=== PATIENT | female | born 1995 | race Hispanic/Latino ===

== ENCOUNTER → 2021-01-11 | Outpatient (CLI) | payer OTHER ==
--- NOTE | 2021-01-13 11:46 | REP ---
INDICATION: OF UNKNOWN LOCATION Twin gestation. COMPARISON: None. TECHNIQUE: Transvaginal 1st trimester obstetrical ultrasound with color Doppler evaluation. FINDINGS: Anteverted uterus measures 9.4 x 4.8 x 5.5 cm. A gestational sac with yolk sac is identified. Mean sac diameter of 10.3 mm corresponds to 5 weeks 0 days gestational age. No pole is currently identified. Bilateral maternal ovaries are normal in appearance and vascularity. No pelvic fluid or adnexal mass lesion identified. IMPRESSION: Findings suggest early as described above. Correlation with serial HCG levels recommended along with repeat ultrasound as necessary. Differential diagnosis would include blighted ovum. <Electronically signed by Mark Mares > 01/13/21 [id number]
== END ==
LOC: M RAD 12:36
PROVIDERS: ATTEND Obstetrics & Gynecology
DX: O36.80X0 Pregnancy with inconclusive fetal viability, not applicable or unspecified (principal)

== ENCOUNTER → 2021-01-25 | Outpatient (CLI) | payer OTHER ==
--- NOTE | 2021-01-25 16:10 | REP ---
INDICATION: F/U FOR VIABILITY COMPARISON: 01/11/2021 TECHNIQUE: Transabdominal and transvaginal 1st trimester obstetrical ultrasound with color Doppler evaluation. FINDINGS: Single live early intrauterine is appreciated. Gestational sac with yolk sac and pole identified. Bantam-rump length of 13 mm corresponds to 7 weeks 3 days gestational age with estimated date of delivery 09/10/2021. heart rate equals 150 beats per minute. Subchorionic hemorrhage measuring 18 x 13 x 9 mm noted. IMPRESSION: Single live early intrauterine at 7 weeks 3 days gestational age. Subchorionic hemorrhage. Complete anatomical assessment should be performed and 19-20 weeks. <Electronically signed by Mark Mares > 01/25/21 [id number]
== END ==
LOC: M RAD 15:07
PROVIDERS: ATTEND Obstetrics & Gynecology
DX: O36.80X0 Pregnancy with inconclusive fetal viability, not applicable or unspecified (principal); Z3A.01 Less than 8 weeks gestation of pregnancy

== ENCOUNTER 2021-03-02 12:33 | Emergency (ER) | payer OTHER ==
[~2021-03-02] VITALS: Ht 162.6 cm; Wt 63.6 kg
--- OUTSIDE RECORDS SUMMARY | 2021-03-02 12:38 | CCD | Summary of Care ---
Author Author [facility] Address Unknown Phone Unavailable Care Team Providers Care Adult Literacy Instructor Name Role Phone Pcp, No PCP Unavailable Reason for Visit * Reason Comments Shortness of Breath early with spotti ng and multi HX Encounter Details Care Team Description Date Type Department Tejas Davis MD [address] [place] [address] [phone] Leeanne Shahid MD [address] [place] [address] [phone] of unknown anatomic location ( Primary Dx); Diagnosis unknown; RLQ abdominal pain [facility]03[facility]20[facility] [address] [facility] 01/04/2021 [place] [address] Allergies Comments Active Allergy Reactions Severity Noted Date Nsaids 01/03/2021 Penicillins 01/03/2021 documented as of this encounter (statuses as of 01/04/2021) Medications End Date Status Medication Sig Dispensed Refills Start Date Active traZODone HCl 100 MG Oral Take 100 mg 0 Tablet (DESYREL) by mouth nightly documented as of this encounter (statuses as of 01/04/2021) Active Problems Comments Yes No additional problems on filedocumented as of this encounter (statuses as of 01/04/2021) Social History Date Tobacco Use Types Packs/Day Years Used Never Assessed Comments Yes Sex Assigned at Date Recorded Not on file Date Recorded COVID-19 Exposure Response 01/03/2021 7:12 PM EDT In the last month, have you been in contact with No / Unsure someone who was confirmed or suspected to have Coronavirus / COVID-19? documented as of this encounter Last Filed Vital Signs Reading Time Taken Comments Vital Sign 112/72 01/03/2021 11:45 PM EDT Blood Pressure 68 01/03/2021 11:45 PM EDT Pulse 36.7 C (98.1 F) 01/03/2021 11:45 PM EDT Temperature 16 01/03/2021 11:45 PM EDT Respiratory Rate 100% 01/03/2021 11:45 PM EDT Oxygen Saturation - - Inhaled Oxygen Concentration 63.5 kg (140 lb) 01/03/2021 7:23 PM EDT Weight 162.6 cm (5' 4") 01/03/2021 7:23 PM EDT Height 24.03 01/03/2021 7:23 PM EDT Body Mass Index documented in this encounter Discharge Instructions * Instructions* Joe Bender MD - 01/04/2021 Please follow up with our Gynecology team for a repeat beta hCG in 48 hours. * Attachments The following attachments cannot be sent through Care Everywhere.* ED Abdominal Pain, Possible Appendicitis (Female) (Portuguese) documented in this encounter ED Notes * Vesna Barron RN - 01/04/2021 1:45 AM EDT The patient left AMA. Discharge instructions were reviewed with the patient. The patient verbalized understanding of the instructions. All discharge questions w ere answered. Discharge vitals were not obtained because the patient was anxious to leave and did not want to wait. * Vesna Barron RN - 01/04/2021 1:20 AM EDT The patient is refusing Covid testing. Doctor Napoleon was notified. * Clifton Hernandez RN - 01/03/2021 7:19 PM EDT [facility], pt started with increas ed SOB and RLQ pain also started spotting 3-4 hrs prior. Pt also states neuro ca rdio genetic syncope. documented in this encounter Plan of Treatment Order Schedule Name Type Priority Associated Diag noses 1 Occurrences starting 01/04/2021 until 07/04/2021 Beta Hcg, Quant Lab Routine of u nknown anatomic location 1 Occurrences starting 01/04/2021 until 07/04/2021 Beta Hcg, Quant Lab Routine of u nknown anatomic location 1 Occurrences starting 01/04/2021 until 07/04/2021 Beta Hcg, Quant Lab Routine of u nknown anatomic location Once for 1 Occurrences starting 01/05/20 until 01/04/2021 COVID-19 PCR Microbiology Routine Once for 1 Occurrences starting 01/05/20 until 01/04/2021 Respiratory Pathogen Microbiology Routine Panel 1 Occurrences starting 01/04/2021 until 07/04/2021 Beta Hcg, Quant Lab Routine of u nknown anatomic location Health Maintenance Due Date Last Done Comments MMR Vaccines (1 of - 1997 Standard series) Varicella Vaccines (1 of 1997 2 - 2-dose childhood series) DTaP,Tdap,and Td Vaccines 2003 (1 - Tdap) HPV Vaccines (1 - 2-dose 2007 series) COVID-19 Vaccine (1) 2008 HIV Screening 2009 Chlamydia Screening 2012 Cervical Cancer Screening 2017 3 years Influenza Vaccine 01/15/2021 Pneumococcal Vaccine: 65+ 2061 Years (1 of 1 - PPSV23) HIB Vaccines Aged Out No longer eligible based on patient's age to complete this topic Hepatitis A Vaccines Aged Out No longer eligibl e based on patient's age to complete this topic Hepatitis B Vaccines Aged Out No longer eligibl e based on patient's age to complete this topic IPV Vaccines Aged Out No longer eligible based on patient's age to complete this topic Pneumococcal Vaccine: Aged Out No longer eligib le based on patient's age to Pediatrics (0 to 5 Years) complete this topic and At-Risk Patients (6 to 64 Years) documented as of this encounter Procedures Comments Procedure Name Priority Date/Time Associated Diag nosis US ABDOMEN LIMITED 80541 STAT 01/04/2021 Diagn osis unknown 1:04 AM EDT US OB TRANSVAGINAL [id number] Routine 01/03/2021 10:19 PM EDT POCT ISTAT BHCG Routine 01/03/2021 9:20 PM EDT PARTIAL THROMBOPLASTIN STAT 01/03/2021 TIME (PTT) 8:09 PM EDT BETA HCG, QUANT STAT 01/03/2021 8:09 PM EDT PROTIME INR STAT 01/03/2021 8:09 PM EDT CBC AND DIFFERENTIAL STAT 01/03/2021 8:09 PM EDT TYPE AND SCREEN Routine 01/03/2021 8:09 PM EDT BASIC METABOLIC PANEL STAT 01/03/2021 8:09 PM EDT documented in this encounter Results * US Abdomen Limited (01/04/2021 1:04 AM EDT) Specimen Narrative Performed At PROCEDURE INFORMATION: [facility] Exam: US Abdomen, Limited; Appendix Exam date and time: 01/04/2021 12:18 AM Age: 25 years old Clinical indication: with inc onclusive viability, not applicable or unspecified; Illness, uns pecified; Abdominal pain; Generalized; ; Additional info: Rlq, eval fo r appendicitis TECHNIQUE: Imaging protocol: US abdomen. Real time ultrasound with image documentation. Limited exam focused on the appendix. COMPARISON: US OB TRANSVAGINAL [id number] 01/03/2021 9:56 PM FINDINGS: Appendix: The appendix was not visualiz ed. Acute appendicitis cannot be excluded. Intraperitoneal space: There is a trace amount of free fluid in the right lower quadrant. IMPRESSION: 1. The appendix was not visualized. Acu te appendicitis cannot be excluded. 2. There is a trace amount of free flui d in the right lower quadrant. THIS DOCUMENT HAS BEEN ELECTRONICALLY S IGNED BY MADI RIDER MD Procedure Note Interface, Received Via [facility] - 01/04/2021 1:06 AM EDT PROCEDURE INFORMATION: Exam: US Abdomen, Limited; Appendix Exam date and time: 01/04/2021 12:18 AM Age: 25 years old Clinical indication: with inconclusive viability, not applicable or unspecified; Illness, unspecified; Abdominal pain; Generalized; ; Additional info: Rlq, eval for appendicitis TECHNIQUE: Imaging protocol: US abdomen. Real time ultrasound with image documentation. Limited exam focused on the appendix. COMPARISON: US OB TRANSVAGINAL [id number] 01/03/2021 9:56 PM FINDINGS: Appendix: The appendix was not visualized. Acute appendicitis cannot be excluded. Intraperitoneal space: There is a trace amount of free fluid in the right lower quadrant. IMPRESSION: 1. The appendix was not visualized. Acut e appendicitis cannot be excluded. 2. There is a trace amount of free fluid in the right lower quadrant. THIS DOCUMENT HAS BEEN ELECTRONICALLY SIGNED BY MADI RIDER MD Performing Organization Address City/State/ZIP Code P axel Number [facility] [address] [place] [address] * US OB Transvaginal (01/03/2021 10:19 PM EDT) Specimen Narrative Performed At PROCEDURE INFORMATION: [facility] Exam: US , Transvaginal Exam date and time: 01/03/2021 9:56 PM Age: 25 years old Clinical indication: complica piedad by abdominal or pelvic pain; Right lower quadrant; First trimester (<14 we eks 0 days); Gestational age or lmp: 3 wk 6 day from lmp; ; Additional info: Rlq abdominal pain, spotting, +home preg test TECHNIQUE: Imaging protocol: Real-time transvagina l obstetrical ultrasound of the maternal pelvis with image documentation. Transv aginal imaging was used for better evaluation of the fetus, adnexa, and/or cervix. COMPARISON: No relevant prior studies available. FINDINGS: Gestation: There is no evidence of a ge stational sac. MATERNAL: Uterus: The uterus measures 9.0 x 4.3 x 5.6 cm. Right adnexa: The right ovary measures 2.9 x 2.1 x 2.1 cm. There is a slightly low echogenicity lesion within the righ t ovary measuring 2.2 x 1.2 x 1.4 cm. Left adnexa: The left ovary measures 2. 5 x 1.6 x 1.7 cm. IMPRESSION: 1. No evidence of a gestational sac. Th is could represent miscarriage. 2. The right ovary measures 2.9 x 2.1 x 2.1 cm. There is a slightly low echogenicity lesion within the right ov smith measuring 2.2 x 1.2 x 1.4 cm. This could represent corpus luteum. No pole was visualized. Ectopic cannot be fully excluded and follow-up with serial HCG levels and ultrasound is recommended for further e valuation. THIS DOCUMENT HAS BEEN ELECTRONICALLY S IGNED BY MADI RIDER MD Procedure Note Interface, Received Via [facility] - 01/03/2021 11:08 PM EDT PROCEDURE INFORMATION: Exam: US , Transvaginal Exam date and time: 01/03/2021 9:56 PM Age: 25 years old Clinical indication: complicated by abdominal or pelvic pain; Right lower quadrant; First trimester (<14 weeks 0 days); Gestational age or lmp: 3 wk 6 day from lmp; ; Additional info: Rlq abdominal pain, spotting, +home preg test TECHNIQUE: Imaging protocol: Real-time transvaginal obstetrical ultrasound of the maternal pelvis with image documentation. Transvaginal imaging was used for better evaluation of the fetus, adnexa, and/or cervix. COMPARISON: No relevant prior studies available. FINDINGS: Gestation: There is no evidence of a gestational sac. MATERNAL: Uterus: The uterus measures 9.0 x 4.3 x 5.6 cm. Right adnexa: The right ovary measures 2.9 x 2.1 x 2.1 cm. There is a slightly low echogenicity lesion within the right ovary measuring 2.2 x 1.2 x 1.4 cm. Left adnexa: The left ovary measures 2.5 x 1.6 x 1.7 cm. IMPRESSION: 1. No evidence of a gestational sac. Thi s could represent miscarriage. 2. The right ovary measures 2.9 x 2.1 x 2.1 cm. There is a slightly low echogenicity lesion within the right ovary measuring 2.2 x 1.2 x 1.4 cm. This could represent corpus luteum. No pole was visualized. Ectopic cannot be fully excluded and follow-up with serial HCG levels and ultrasound is recommended for further evaluation. THIS DOCUMENT HAS BEEN ELECTRONICALLY SIGNED BY MADI RIDER MD Performing Organization Address City/[facility]/ZIP Code P axel Number [facility] [address] [place] [address] * POCT i-STAT BHCG (01/03/2021 9:20 PM EDT) i-STAT [facility] 381 (H) <5 [IU]/L [facility] Comment: Hospital POC (NOTE) Levels between 5 and 25 [IU]/L may indicate early and should be repeated after 48 hours. Specimen Whole Blood Performing Organization Address [facility]/ZIP [facility] P axel Number POINT OF CARE TEST [address] [place] [address] [facility] POC [address] [place] [address] * Partial Thromboplastin Time (PTT) (01/03/2021 8:09 PM EDT) PTT 27.6 24.0 - 33.0 s [facility] Clin Pathology Specimen Plasma Performing Organization Address [facility] P axel Number [facility] [address] [place], [place] [address] PATHOLOGY [facility] [address] [place], [place] [address] Clin Pathology * Protime-INR (01/03/2021 8:09 PM EDT) PT Patient 13.1 11.6 - 14.0 s [facility] Clin Pathology Int'l 1.03Comment: Routine intensity [facility] pstate Normalized oral anticoagulation INR is Med [facility] Clin Ratio typically 2.0-3.0. Target INR Patholo gy must be clinically individualized. Specimen Plasma Performing Organization Address [facility]/ZIP [facility] P axel Number [facility] [address] [place], [place] [address] PATHOLOGY [facility] [address] [place], [place] [address] Clin Pathology * CBC and Differential (01/03/2021 8:09 PM EDT) White Blood 10.6 (H) 4.00 - 10.00 10*3/uL [facility] Ups ate Cell [facility] Clin Pathology Red Blood Cell 4.32 4.10 - 5.30 10*6/uL [facility] Clin Pathology Hemoglobin 13.6 11.5 - 15.5 g/dL [facility] Clin Pathology Hematocrit 39.6 36.0 - 45.0 % [facility] Clin Pathology Mean Cell 91.8 80.0 - 96.0 fL [facility] Volume [facility] Clin Pathology Mean Cell 31.6 27.0 - 33.0 pg [facility] Hemoglobin [facility] Clin Pathology Mean Cell Hgb 34.4 32 - 36 g/dL [facility] Clin Pathology Red Cell Dist 13.2 11.5 - 14.5 % [facility] Width [facility] Clin Pathology Platelet Count 352 150 - 400 10*3/uL [facility] Clin Pathology Differential Automated Diff [facility] Clin Pathology Neutrophil 57 % [facility] Clin Pathology Lymphocyte 34 % [facility] Clin Pathology Monocyte 7 % [facility] Clin Pathology Eosinophil 1 % [facility] Clin Pathology Basophil 1 % [facility] Clin Pathology Abs Neutrophil 6.11 1.80 - 7.00 10*3/uL [facility] Clin Pathology Abs Lymphocyte 3.60 1.20 - 4.00 10*3/uL [facility] Clin Pathology Abs Monocyte 0.69 0.00 - 0.80 10*3/uL [facility] Clin Pathology Abs Eosinophil 0.10 0.00 - 0.50 10*3/uL [facility] Clin Pathology Abs Basophil 0.06 0.00 - 0.20 10*3/uL [facility] Clin Pathology Nucleated Red 0 0 - 0 /100{WBCs} [facility] Blood Cells [facility] Clin Pathology Specimen EDTA Whole Blood Performing Organization Address City/State/ZIP Code P axel Number [facility] [address] [place], [place] [address] PATHOLOGY [facility] [address] [place], [place] [address] Clin Pathology * Basic Metabolic Panel (01/03/2021 8:09 PM EDT) Bicarbonate 18 (L) 22 - 29 mmol/L [facility] Clin Pathology Chloride 101 98 - 107 mmol/L [facility] Clin Pathology Creatinine 0.73 0.50 - 0.90 mg/dL [facility] Clin Pathology Glucose 100 70 - 140 mg/dL [facility] Clin Pathology Potassium 3.5 3.4 - 5.1 mmol/L [facility] Clin Pathology Sodium 133 (L) 136 - 145 mmol/L [facility] Clin Pathology Blood Urea 9 6 - 20 mg/dL [facility] Nitrogen [facility] Clin Pathology Anion Gap 14 8 - 15 mmol/L [facility] Clin Pathology Osmolality, Earl 274 (L) 275.0 - 300.0 [facility] mosm/kg [facility] Clin Pathology BUN/Cre Ratio 12 [facility] Clin Pathology Calcium 9.1 8.6 - 10.0 mg/dL [facility] Clin Pathology GFR Non >90 >60 mL/min/1.73m2 [facility] 2008 Med [facility] Clin CDK-EPI Pathology GFR >90 >60 mL/min/1.73m2 [facility] 2008 [facility] CKD-EPI Pathology Specimen Plasma Performing Organization Address [facility] P axel Number [address] [address] Clin Pathology * Beta Hcg, Quant (01/03/2021 8:09 PM EDT) Beta HCG, Quant 460 (H) <5 m[IU]/mL [facility] Clin Pathology Specimen Plasma Performing Organization Address City/[facility] P axel Number [address] [address] Clin Pathology * Type and Screen (01/03/2021 8:09 PM EDT) ABO/RH(D) O POS [facility] Clin Pathology Gel Antibody NEG [facility] Clin Pathology Site Performed at [facility] Clin Pathology Specimen EDTA Whole Blood Performing Organization Address [facility] P axel Number [facility] [address] [place], [place] [address], [place] [address] Clin Pathology documented in this encounter Visit Diagnoses Diagnosis of unknown anatomic location - Primary state, incidental Diagnosis unknown Other unknown and unspecified cause of morbidity or mortality RLQ abdominal pain Abdominal pain, right lower quadrant documented in this encounter Administered Medications Action Date Dose Rate Site Medication Order MAR Action 01/03/2021 11:06 PM EDT 2 mg morphine sulfate (PF) injection 2 mg Given by IV 2 mg, Intravenous, Once, On Mon01/03/21 push at 2300, For 1 dose 01/03/2021 9:16 PM EDT 4 mg morphine sulfate (PF) injection 4 mg Given by IV 4 mg, Intravenous, Once, On Mon01/03/21 push at 2100, For 1 dose 01/04/2021 1:07 AM EDT 4 mg morphine sulfate (PF) injection 4 mg Given by IV 4 mg, Intravenous, Once, On Mon01/04/21 push at 0000, For 1 dose 01/03/2021 9:16 PM EDT 1,000 mLs 999 mL/hr sodium chloride 0.9 % bolus 1,000 mL New Bag 1,000 mL, Intravenous, Once, On Mon01/03/21 at 2100, For 1 dose 01/03/2021 11:05 PM EDT 1,000 mLs 999 mL/hr sodium chloride 0.9 % bolus 1,000 mL New Bag 1,000 mL, Intravenous, Once, On Mon01/03/21 at 2300, For 1 dose documented in this encounter Active and Recently Administered Medications Times are shown in EDT. 01/03/2021 01/04/2021 Medication Order 01/02/20212305 (Given by IV push - Provider: yTrel Barron RN) morphine sulfate (PF) injection 2 mg (COMPLETED) 2 mg, Intravenous, Once, On Mon01/03/21 at 2300, For 1 dose 2115 (Given by IV push - Provider: Tyrel Barron RN) morphine sulfate (PF) injection 4 mg (COMPLETED) 4 mg, Intravenous, Once, On Mon01/03/21 at 2100, For 1 dose 0107 (Given by IV push - Provider: Tyrel Barron RN) morphine sulfate (PF) injection 4 mg (COMPLETED) 4 mg, Intravenous, Once, On Mon01/04/21 at 0000, For 1 dose 6 (New Bag - Provider: Vesna lo RN)2253 (Stopped - All Meds - Provider: Kary Patel LPN) sodium chloride 0.9 % bolus 1,000 mL (COMPLETED) 1,000 mL, Intravenous, Once, On 01/03/21 at 2100, For 1 dose 2305 (New Bag - Provider: Vesna lo RN) 0019 (Stopped - All Meds - Provider: Yumiko Barron RN) sodium chloride 0.9 % bolus 1,000 mL (COMPLETED) 1,000 mL, Intravenous, Once, On 01/03/21 at 2300, For 1 dose documented in this encounter Additional Health Concerns Last Indicated Resolved Time Infection Onset Date 01/04/2021 COVID-19 Rule-Out 01/04/2021 01/04/2021 Respiratory Rule-Out 01/04/2021 documented as of this encounter
--- OUTSIDE RECORDS SUMMARY | 2021-03-02 12:39 | CCD ---
Author Author [facility] Organization [facility] Address Unknown Phone Unavailable Care Team Providers Care Plant Operations Manager Name Role Phone Edwin PRATT MD Unavailable Unavailable Edwin PRATT MD Unavailable Unavailable Edwin PRATT MD Unavailable Unavailable Edwin PRATT MD Unavailable Unavailable Edwin PRATT MD Unavailable Unavailable Edwin PRATT MD Unavailable Unavailable Edwin PRATT MD Unavailable Unavailable Edwin PRATT MD Unavailable Unavailable Donald ANGULO MD Unavailable Unavailable Donald ANGULO MD Unavailable Unavailable Donald ANGULO MD Unavailable Unavailable Donald ANGULO MD Unavailable Unavailable Donald ANGULO MD Unavailable Unavailable Donald ANGULO MD Unavailable Unavailable Donald ANGULO MD Unavailable Unavailable Donald ANGULO MD Unavailable Unavailable Donald ANGULO MD Unavailable Unavailable Donald ANGULO MD Unavailable Unavailable Donald ANGULO MD Unavailable Unavailable Donald ANGULO MD Unavailable Unavailable Donald ANGULO MD Unavailable Unavailable Carangelo, Guillermo PA Unavailable Unavailable Carangelo, Guillermo PA Unavailable Unavailable Carangelo, Guillermo PA Unavailable Unavailable Carangelo, Guillermo PA Unavailable Unavailable Carangelo, Guillermo PA Unavailable Unavailable Carangelo, Guillermo PA Unavailable Unavailable Carangelo, Guillermo PA Unavailable Unavailable Carangelo, Guillermo PA Unavailable Unavailable Carangelo, Guillermo PA Unavailable Unavailable Carangelo, Guillermo PA Unavailable Unavailable Carangelo, Guillermo PA Unavailable Unavailable Carangelo, Guillermo PA Unavailable Unavailable Carangelo, Guillermo PA Unavailable Unavailable Carangelo, Guillermo PA Unavailable Unavailable Carangelo, Guillermo PA Unavailable Unavailable Carangelo, Guillermo PA Unavailable Unavailable Carangelo, Guillermo PA Unavailable Unavailable Carangelo, Guillermo PA Unavailable Unavailable Carangelo, Guillermo PA Unavailable Unavailable Carangelo, Guillermo PA Unavailable Unavailable Carangelo, Guillermo PA Unavailable Unavailable Carangelo, Guillermo PA Unavailable Unavailable Carangelo, Guillermo PA Unavailable Unavailable Carangelo, Guillermo PA Unavailable Unavailable Carangelo, Guillermo PA Unavailable Unavailable Carangelo, Guillermo PA Unavailable Unavailable Carangelo, Guillermo PA Unavailable Unavailable Carangelo, Guillermo PA Unavailable Unavailable Carangelo, Guillermo PA Unavailable Unavailable Carangelo, Guillermo PA Unavailable Unavailable Meng, L Janell BUZZSAW OPERATOR Unavailable Unavailable Meng, L Janell BUZZSAW OPERATOR Unavailable Unavailable Meng, L Janell BUZZSAW OPERATOR Unavailable Unavailable Meng, L Janell BUZZSAW OPERATOR Unavailable Unavailable Meng, L Janell BUZZSAW OPERATOR Unavailable Unavailable Meng, L Janell BUZZSAW OPERATOR Unavailable Unavailable Meng, L Janell BUZZSAW OPERATOR Unavailable Unavailable Meng, L Janell BUZZSAW OPERATOR Unavailable Unavailable Meng, L Janell BUZZSAW OPERATOR Unavailable Unavailable Meng, L Janell BUZZSAW OPERATOR Unavailable Unavailable Meng, L Janell BUZZSAW OPERATOR Unavailable Unavailable Meng, L Janell BUZZSAW OPERATOR Unavailable Unavailable Meng, L Janell BUZZSAW OPERATOR Unavailable Unavailable Meng, L Janell BUZZSAW OPERATOR Unavailable Unavailable Meng, L Janell BUZZSAW OPERATOR Unavailable Unavailable Meng, L Janell BUZZSAW OPERATOR Unavailable Unavailable Meng, L Janell BUZZSAW OPERATOR Unavailable Unavailable Meng, L Janell BUZZSAW OPERATOR Unavailable Unavailable Meng, L Janell BUZZSAW OPERATOR Unavailable Unavailable Meng, L Janell BUZZSAW OPERATOR Unavailable Unavailable Meng, L Janell BUZZSAW OPERATOR Unavailable Unavailable Meng, L Janell BUZZSAW OPERATOR Unavailable Unavailable Meng, L Janell BUZZSAW OPERATOR Unavailable Unavailable Meng, L Janell BUZZSAW OPERATOR Unavailable Unavailable Meng, L Janell BUZZSAW OPERATOR Unavailable Unavailable Meng, L Janell BUZZSAW OPERATOR Unavailable Unavailable Meng, L Janell BUZZSAW OPERATOR Unavailable Unavailable Meng, L Janell BUZZSAW OPERATOR Unavailable Unavailable Meng, L Janell BUZZSAW OPERATOR Unavailable Unavailable Meng, L Janell BUZZSAW OPERATOR Unavailable Unavailable Meng, L Janell BUZZSAW OPERATOR Unavailable Unavailable Meng, L Janell BUZZSAW OPERATOR Unavailable Unavailable Meng, L Janell BUZZSAW OPERATOR Unavailable Unavailable Meng, L Janell BUZZSAW OPERATOR Unavailable Unavailable Meng, L Janell BUZZSAW OPERATOR Unavailable Unavailable Meng, L Janell BUZZSAW OPERATOR Unavailable Unavailable Meng, L Janell BUZZSAW OPERATOR Unavailable Unavailable Meng, L Janell BUZZSAW OPERATOR Unavailable Unavailable Meng, L Janell BUZZSAW OPERATOR Unavailable Unavailable Meng, L Janell BUZZSAW OPERATOR Unavailable Unavailable Meng, L Janell BUZZSAW OPERATOR Unavailable Unavailable Meng, L Janell BUZZSAW OPERATOR Unavailable Unavailable Meng, L Janell BUZZSAW OPERATOR Unavailable Unavailable Meng, L Janell BUZZSAW OPERATOR Unavailable Unavailable Meng, L Janell BUZZSAW OPERATOR Unavailable Unavailable CHANLIECCO, C VIRGINIA MD Unavailable Unavailable CHANLIECCO, C VIRGINIA MD Unavailable Unavailable CHANLIECCO, C VIRGINIA MD Unavailable Unavailable CHANLIECCO, C VIRGINIA MD Unavailable Unavailable CHANLIECCO, C VIRGINIA MD Unavailable Unavailable CHANLIECCO, C VIRGINIA MD Unavailable Unavailable CHANLIECCO, C VIRGINIA MD Unavailable Unavailable CHANLIECCO, C VIRGINIA MD Unavailable Unavailable CHANLIECCO, C VIRGINIA MD Unavailable Unavailable CHANLIECCO, C VIRGINIA MD Unavailable Unavailable CHANLIECCO, C VIRGINIA MD Unavailable Unavailable Re-disclosure Warning The records that you are about to access may contain information from federally-assisted alcohol or drug abuse programs. If such information is present, then the following federally mandated warning applies: This information has been disclosed to you from records protected by federal confidentiality rules (42 CFR part 2). The federal rules prohibit you from making any further disclosure of this information unless further disclosure is expressly permitted by the written consent of the person to whom it pertains or as otherwise permitted by 42 CFR part 2. A general authorization for the release of medical or other information is NOT sufficient for this purpose. The Federal rules restrict any use of the information to criminally investigate or prosecute any alcohol or drug abuse patient.The records that you are about to access may contain highly sensitive health information, the redisclosure of which is protected by Article 27-F of the [facility] Public Health law. If you continue you may have access to information: Regarding HIV / AIDS; Provided by facilities licensed or operated by the [facility] Office of Mental Health; or Provided by the [facility] Office for People With Developmental Disabilities. If such information is present, then the following [facility] mandated warning applies: This information has been disclosed to you from confidential records which are protected by state law. State law prohibits you from making any further disclosure of this information without the specific written consent of the person to whom it pertains, or as otherwise permitted by law. Any unauthorized further disclosure in violation of state law may result in a fine or long term sentence or both. A general authorization for the release of medical or other information is NOT sufficient authorization for further disc losure. Allergies and Adverse Reactions Type Description Substance Reaction Status Data Source(s ) Propensity to adverse reactions PENICILLINS [facility] Propensity to adverse reactions NSAIDS [facility] Encounters Encounter Providers Location Date Indications Data Source(s ) Outpatient Attender: Guillermo Mcconnell Office 01/08/2021 11:00:00 AM EDT [facility] ([facility]) Emergency Attender: VIRGINIA JOHN MDConsultant: Mine Meng BUZZSAW OPERATOR 01/05/2021 04:54:00 PM EDT - 01/05/2021 08:32:00 PM EDT [facility] Patient discharged. Emergency Attender: FERNANDO PRATT MDAttender: BAKARI MARQUEZ MD 07A-ERMADULT 01/03/2021 12:00:00 AM EDT - 01/04/2021 01:50:00 AM EDT /abdominal pain/shortness of breath [facility] /abdominal pain/shortness of kallie ath Patient discharged. Medications Medication Brand Name Start Date Product Form Dose Route Admi nistrative Instructions Pharmacy Instructions Status Indications Reaction Description Data Source(s) morphine sulfate (PF) injection 4 mg 8237-0074-75 01/04/2021 12:00: 00 AM EDT 4 mg Intravenous completed 4 mg, In travenous, Once, On 01/04/21 at 0000, For 1 dose [facility] Medication administered onsite sodium chloride 0.9 % bolus 1,000 mL 01/03/2021 11:00: 00 PM EDT 1000 mL Intravenous completed 1,000 mL , Intravenous, Once, On 01/03/21 at 2300, For 1 dose [facility] Medication administered onsite morphine sulfate (PF) injection 2 mg [id number] 01/03/2021 11:00: 00 PM EDT 2 mg Intravenous completed 2 mg, In travenous, Once, On 01/03/21 at 2300, For 1 dose [facility] Medication administered onsite morphine sulfate (PF) injection 4 mg [id number] 01/03/2021 09:00: 00 PM EDT 4 mg Intravenous completed 4 mg, In travenous, Once, On Mon01/03/21 at 2100, For 1 dose [facility] Medication administered onsite sodium chloride 0.9 % bolus 1,000 mL [id number] 01/03/2021 09:00: 00 PM EDT 1000 mL Intravenous completed 1,000 mL , Intravenous, Once, On 01/03/21 at 2100, For 1 dose [facility] Medication administered onsite Insurance Providers Payer name Policy type / Coverage type Policy ID Covered democrat ID Covered democrat's relationship to camacho Policy Camacho Plan Information [id number] Self [id number] [facility] [id number] [facility] [id number] [facility] - O/P [id number] 01 [id number] [facility] [id number] Problems, Conditions, and Diagnoses Code Display Name Description Problem Type Effective Dates Data Source(s) Z3A01 Less than 8 weeks gestation of Less than 8 weeks gestation of Diagnosis 01/05/2021 04:54:00 PM EDT [facility] [id number] Unspecified infection of urinary tract i n , first trimester Unspecified infection of urinary tract in , first trimester Diagnosis 01/05/2021 04:54:00 PM EDT [facility] O2691 related conditions, unspecifie d, first trimester related conditions, unspecified, first trimester Diagnosis 01/05 04:54:00 PM EDT [facility] /abdominal pain/shortness of kallie ath /abdominal pain/shortness of breath Diagnosis 01/03/2021 07:12:[address] [facility] Surgeries/Procedures Procedure Description Date Indications Data Source(s) OFFICE OUTPATIENT NEW 20 MINUTES 01/08/2021 12:00:00 A M EDT [facility] ([facility]) ULTRASOUND ABDOMINAL REAL TIME W/IMAGE LIMITED <td>US ABDOMEN LIMITED [id number]</td><td>STAT</td><td>01/04/2021 1:04 AM EDT</td><td> Diagnosis unknown</td><td> </td> 01/04/2021 01:04:32 AM EDT Diagnosis unknown [facility] Diagnosis unknown US PREG UTERUS REAL TIME W/IMAGE DCMTN TRANSVAG <td>US OB TRANSVAGINAL 17108</td><td>Routine</td><td>01/03/2021 10:19 PM EDT</td><td></td><td> </td> 01/03/2021 10:19:[address] [facility] GONADOTROPIN CHORIONIC QUANTITATIVE <td>POCT ISTAT BHCG</td><td>Routine</td><td>01/03/2021 9:20 PM EDT</td><td></td><td> </td> 01/03/2021 09:20:[address] [facility] THROMBOPLASTIN TIME PARTIAL PLASMA/WHOLE BLOOD <td>PAR TIAL THROMBOPLASTIN TIME (PTT)</td><td>STAT</td><td>01/03/2021 8:09 PM EDT</td><td></td><td> </td> 01/03/2021 08:09:[address] [facility] GONADOTROPIN CHORIONIC QUANTITATIVE <td>BETA HCG, QUANT</td><td>STAT</td><td>01/03/2021 8:09 PM EDT</td><td></td><td> </td> 01/03/2021 08:09:[address] [facility] PROTHROMBIN TIME <td>PROTIME INR</td><td>STAT </td><td>01/03/2021 8:09 PM EDT</td><td></td><td> </td> 01/03/2021 08:09:[address] [facility] BLOOD COUNT COMPLETE AUTO&AUTO DIFRNTL WBC COUNT <td>C BC AND DIFFERENTIAL</td><td>STAT</td><td>01/03/2021 8:09 PM EDT</td><td></td><td> </td> 01/03/2021 08:09:[address] [facility] BLOOD TYPING ABO <td>TYPE AND SCREEN</td><td> Routine</td><td>01/03/2021 8:09 PM EDT</td><td></td><td> </td> 01/03/2021 08:09:00 PM EDT [facility] BASIC METABOLIC PANEL CALCIUM TOTAL <td>BASIC METABOLI C PANEL</td><td>STAT</td><td>01/03/2021 8:09 PM EDT</td><td></td><td> </td> 01/03/2021 08:09:00 PM EDT [facility] Results ID Date Data Source [id number] 01/13/2021 04:14:[address] [facility] Name Value Range Interpretation Code Description Data Joan rce(s) Supporting Document(s) ED Provider Note [facility] [id number] lbm [file] [id number]== ID Date Data Source [id number] 01/05/2021 04:54:00 PM EDT [facility] 1 OrderSheet [facility] Emergency Department [address] [place] [address] Phone #: ext- [phone] 01/05/2021 16:52 Patient: KURT TANNER Sex: F : 1995 Age: 25yWEIGHT:63.5 kg (S) HEIGHT:64 inches (S) BMI:24.0ALLERGIES: NSAIDs, Peni cillinsCHIEF COMPLAINT: pelvic painDIAGNOSIS: Urinary tract infectious disease, Patient currently , Abdominal painLAB ORDERSOrder Description Priority Entered Acknowledged InitialedUA Reflex to UA 17:55 01/05/2021 18:08 Donald,Culture Virginia John R.N. ;HCG Serum Quant STAT 17:55 01/05/2021 18:08 Alvaro Bennett Victoria Jennifer R.N. ;CBC w Diff STAT 17:55 01/05/2021 18:08 Alvaro Bennett Victoria Jennifer R.N. ;CMP STAT 17:55 01/05/2021 18:08 Alvaro Bennett Victoria Jennifer R.N. ;DIAGNOSTIC STUDY ORDERSOrder Description Priority Entered Acknowledged InitialedUS OB 1ST TRI W STAT 17:55 01/05/2021 Ack'd: 18:08 18:42 Donald,TV IF NEEDED Virginia John Jennifer Jennifer R.N.(Oxygen?(No)) ; R.N.(IV?(No)) Reason for Study: right lower abdomiena pain 4 weeks MEDICATION/IV/DRIP/FLUID ORDERSOrder Description Priority Entered Acknowledged InitialedTylenol PO 650 mg 17:56 01/05 18:10 Donald,(NOW) Virginia John R.N. ;Pyridium PO 200 19:03 01/05/2021 Cancelled: Patient Refusal 19:14mg (NOW) Virginia John Jennifer R.N. ;Macrobid PO 100 19:03 01/05/2021 19:14 mg Alvaro Bennett Victoria Jennifer R.N. 2 OrderSheet [facility] Emergency Department [address] [place] [address] Phone #: ext- [phone] 01/05/2021 16:52 Patient: KURT TANNER Sex: F : 1995 Age: 25y ;Percocet PO 1 tab 19:05 01/05/2021 19:14 Donald,(HIGH ALERT Virginia John R.N.MEDICATION) ;GENERAL ORDERSOrder Description Priority Entered Acknowledged Initialed[Electronically signed by Tiara Silva (20:32 01/05/2021)][Electronically signed by Virginia John (21:42 01/05/2021)][Electronically locked by Tiara Silva (20:32 01/05/2021)] Name Value Range Interpretation Code Description Data Joan rce(s) Supporting Document(s) ID Date Data Source [id number] 01/05/2021 04:54:00 PM EDT [facility] 1 Medication Reconciliation Report [facility] Emergency Department [address] [place] [address] Phone #: ext- [phone] 01/05/2021 16:52 Patient: KURT TANNER Sex: F : 1995 Age: 25yWeight: 63.5 kgHeight/Length: 64 in.BMI: 24.0ALLERGIES: NSAIDs, PenicillinsThe patient's Home Medications are listed below:NONE.The source(s) of the original Home Medication information:Not obtained.The following Medications were given to the patient in the Emergency Department:Tylenol [PO] PO 650 mg, administered: 18:10 01/05/2021Macrobid [PO] PO 100 mg, administered: 19:14 01/05/2021ercocet [PO] PO 1 tab, administered: 19:14 01/05/2021The following Medications were prescribed to the patient:Pyridium 200 mg tablet Take 1 tablet three times a day for 2 days -- Dispense 6 tablet. Refills: 0.Substitution permitted.Pharmacy - [facility] [id number] ; [place] [address]. .Macrobid 100 mg capsule Take 1 capsule twice a day for 7 days -- Dispense 14 capsule. Refills: 0.Substitution permitted.Pharmacy - [facility] [phone] - [phone] ; [place] [address]. FaxNumber: . -- Virginia John Name Value Range Interpretation Code Description Data Joan rce(s) Supporting Document(s) ID Date Data Source [id number] 01/05/2021 04:54:00 PM EDT [facility] 1 Medication Administration Record [facility] Emergency Department [address] [place] [address] Phone #: ext- [phone] 01/05/2021 16:52 Patient: KURT TANNER Sex: F : 1995 Age: 25yWeight: 63.5 kgHeight/Length: 64 inBMI: 24ALLERGIES: Penicillins, NSAIDs Date/Time Medication Administered Medication OrderedGiven TYLENOL [PO] (APAP) Tylenol PO 650 mg (NOW)18:10 01/05/2021 Dose: 650 mg Tablets Uma Walker R.N.Given MACROBID [PO] (NITROFURANTOIN Macrobid PO 100 mg19:14 01/05/2021 MONOHYD MACRO)Uma Bennett R.N. Dose: 100 mg Capsules POGiven PERCOCET [PO] Percocet PO 1 tab (HIGH ALERT19:14 01/05/2021 (OXYCODONE-ACETAMINOPHEN) MEDICA TION)Uma Bennett R.N. Dose: 1 tab Tablets PO Name Value Range Interpretation Code Description Data Joan rce(s) Supporting Document(s) ID Date Data Source [id number] 01/05/2021 04:54:00 PM EDT [facility] 1 General Instructions [facility] Emergency Department [address] [place] [address] Phone #: ext- [phone] 01/05/2021 16:52 Patient: KURT TANNER Sex: F : 1995 Age: 25yAcute suprapubic abdominal pain.First trimester .Acute urinary tract infection with cystitis. No hematuria.INSTRUCTIONSDrink plenty of fluids.(take the macorbid for UTI as well as the pyridium for lower abdominal discomfort. [facility]. follow up with your docotr in 2 days if not better.).Your Current Medications: .No home medication.Prescription Medications:Pyridium 200 mg tablet Take 1 tablet three times a day for 2 days -- Dispense 6 tablet. Refills: 0.Substitution permitted.Pharmacy - [facility] [phone] ; [place] [address]. .Macrobid 100 mg capsule Take 1 capsule twice a day for 7 days -- Dispense 14 capsule. Refills: 0.Substitution permitted.Pharmacy - [facility] [phone] - [phone] ; [place] [address]. FaxNumber: [phone].Follow-up:Follow up with your healthcare provider in two if not better. Reason for referral: evaluation. Summary ofcare provided to patient via paper. ADDITIONAL INFORMATIONBladder Infection, Female (Adult) 2 General Instructions [facility] Emergency Department [address] [place] [address] Phone #: ext- [phone] 01/05/2021 16:52 Patient: KURT TANNER Sex: F : 1995 Age: 25yUrine normally doesn't have any germs (bacteria) in it. But bacteria can get into the urinary tract fromthe skin around the rectum. Or they can travel in the blood from other parts of the body. Once theyare in your urinary tract, they can cause infection in these areas: The urethra (urethritis) The bladder (cystitis) The kidneys (pyelonephritis)The most common place for an infection is in the bladder. This is called a bladder infection. This isone of the most common infections in women. Most bladder infections are easily treated. They arenot serious unless the infection spreads to the kidney.The terms bladder infection, UTI, and cystitis are often used to describe the same thing. But they arenot always the same. Cystitis is an inflammation of the bladder. The most common cause of cystitis isan infection.SymptomsThe infection causes inflammation in the urethra and bladder. This causes many of the symptoms.The most common symptoms of a bladder infection are: Pain or burning when urinating Having to urinate more often than normal Urgent need to urinate 3 General Instructions [facility] Emergency Department [address] [place] [address] Phone #: ext- [phone] 01/05/2021 16:52 Patient: KURT TANNER Sex: F : 1995 Age: 25y Only a small amount of urine comes out Blood in urine Belly (abdominal) discomfort. This is often in the lower belly above the pubic bone. Cloudy urine Strong- or bad-smelling urine Unable to urinate (urinary retention) Unable to hold urine in (urinary incontinence) Fever Loss of appetite Confusion (in older adults)CausesBladder infections are not contagious. You can't get one from someone else, from a toilet seat, orfrom sharing a bath.The most common cause of bladder infections is bacteria from the bowels. The bacteria get onto theskin around the opening of the urethra. From there, they can get into the urine. Then they travel up tothe bladder, causing inflammation and infection. This often happens because of: Wiping incorrectly after urinating. Always wipe from front to back. Bowel incontinence Procedures such as having a catheter put in Older age Not emptying your bladder. This can give bacteria a chance to grow in your urine. Fluid loss (dehydration) Constipation Having sex Using a diaphragm for controlTreatment 4 General Instructions [facility] Emergency Department [address] [place] [address] Phone #: ext- [phone] 01/05/2021 16:52 Patient: KURT TANNER Sex: F : 1995 Age: 25yBladder infections are diagnosed by a urine test and urine culture. They are treated with antibiotics.They often clear up quickly without problems. Treatment helps prevent a more serious kidneyinfection.MedicinesMedicines can help in the treatment of a bladder infection: Take antibiotics until they are used up, even if you feel better. It's important to finish them to make sure the infection has cleared. You can use acetaminophen or ibuprofen for pain, fe pablo, or discomfort, unless another medicine was prescribed. If you have long- term (chronic) liver or kidney disease, talk with your healthcare provider before using these medicines. Also talk with your provider if you've ever had a stomach ulcer or GI (gastrointestinal) bleeding, or are taking blood-thinner medicines. If you are given phenazopydridine to reduce burning with urination, it will make your urine a bright orange color. This can stain clothing.Care and preventionThese self-care steps can help prevent future infections: Drink plenty of fluids. This helps to prevent dehydration and flush out your bladder. Do this unless you must restrict fluids for other health reasons, or your healthcare provider told you not to. Clean yourself correctly after going to the bathroom. Wipe from front to back after using the toilet. This helps prevent the spread of bacteria. Urinate more often. Don't try to hold urine in for a long time. Wear loose-fitting clothes and cotton underwear. Don't wear tight-fitting pants. Improve your diet and prevent constipation. Eat more fresh fruits and vegetables, and fiber. Eat less junk foods and fatty foods. Don't have sex until your symptoms are gone. Don't have caffeine, alcohol, and spicy foods. These can irritate your bladder. Urinate right after you have sex to flush out your bladder. If you use control pills and have frequent bladder infections, discuss it with your healthcare provider.Follow-up care 5 General Instructions [facility] Emergency Department [address] [place] [address] Phone #: ext- [phone] 01/05/2021 16:52 Patient: KURT TANNER Sex: F : 1995 Age: 25yCall your healthcare provider if all symptoms are not gone after 3 days of treatment. This is especiallyimportant if you have repeat infections.If a culture was done, you will be told if your treatment needs to be changed. If directed, you cancall to find out the results.If X-rays were done, you will be told if the results will affect your treatment.Call [phone] 918 if any of the following occur: Trouble breathing Hard to wake up or confusion Fainting (loss of consciousness) Fast heart rateWhen to get medical adviceCall your healthcare provider right away if any of these occur: Fever of 100.4F (38.0C) or higher, or as directed by your healthcare provider Symptoms are not better after 3 days of treatment Back or belly pain that gets worse Repeated vomiting, or unable to keep medicine down Weakness or dizziness Vaginal discharge Pain, redness, or swelling in the outer vaginal area (labia) [phone] [employer]. [address] [place] [address]. All rights reserved. This information is not intended as asubstitute for professional medical care. Always follow your healthcare professional's instructions. You have been given the following additional information: Bladder Infection, Female (Adult) 6 General Instructions [facility] Emergency Department [address] [place] [address] Phone #: ext- [phone] 01/05/2021 16:52 Patient: KURT TANNER Sex: F : 1995 Age: 25y(Electronically signed by Virginia John 01/05/2021 21:42) Name Value Range Interpretation Code Description Data Joan rce(s) Supporting Document(s) ID Date Data Source [id number] 01/05/2021 04:54:00 PM EDT [facility] 1 Clinical Report - Nurses [facility] Emergency Department [address] [place] [address] Phone #: ext- [phone] 01/05/2021 16:52 Patient: KURT TANNER [facility]#: [id number] Sex: F : 1995 Age: 25yTRIAGEArrived by private vehicle. Historian: patient.Acuity: LEVEL 3.Chief Complaint: ABDOMINAL PAIN and SPOTTING.Alert. No acute distress.Onset. (2 days ago). ( PT reports Monday she began having sharp LLQ pain on Monday that radiates toher lower back with scant spotting. She had a positive test the week prior. Monday, she went [facility] ER and had a transvaginal ultrasound done and an ultrasound of her appendix. PTreports that she was told she had a lesion on her right ovary and could not rule out an ectopic .She also had free fluid in her RLQ. She called the ob provider in [place] and was told to come to the ERagain because her pain has not improved.).Treatment HOME HEALTH PHYSICAL THERAPIST:Seen within the last 48 hours at another facility in the ED; seen for similar symptoms; sonogram done.SEPSIS SCREEN: SIRS SCREEN NEGATIVE. SEPSIS SCREEN NEGATIVE. No suspected or confirmedsigns of infection present.KYLE COMA SCORE: 15- eyes open- spontaneous (4); best verbal response- oriented (5); bestmotor response- obeys commands (6). --17:06 01/05/21 Manisha Lucero R.N.16:55 01/05/21. BP: 100/64. HR: 77. RR: 18. O2 saturation: 99%. Temp: 96.9 F. Pain level now 8/10.--17:06 01/05/21 Manisha Lucero R.N.Weight: 63.5 kg stated. Height/Length: 64 inches Per Patient. BMI: 24. --17:03 01/05/21 Manisha Lucero R.N.MedicationsNone. --17:04 01/05/21 Manisha Lucero R.N.AllergiesNSAIDs.Penicillins. --17:02 01/05/21 Manisha Lucero R.N.PROBLEMS:Neurocardiogenic syncopy.Lumbar disc disease. --17:06 01/05/21 Manisha Lucero R.N. 2 Clinical Report - Nurses [facility] Emergency Department [address] [place] [address] Phone #: ext- [phone] 01/05/2021 16:52 Patient: KURT TANNER Sex: F : 1995 Age: 25y ADDITIONAL SURGERIES: Nerve stimulator. --17:06 01/05/21 Manisha Lucero R.N. History PAST MEDICAL HX: Last normal menstrual period- Dec 07. 2. Para 1. Currently . OB history: G 2; P 1. SOCIAL HX: Never smoker. Smoker- current status unknown (quit 1 month ago). No alcohol use or drug use. She was offered HIV testing but declined and hepatitis C testing but declined. She has not traveled outside the [place] Infectious disease exposure: The patient was not exposed to C-diff, MRSA, VRE, CRE or Coronavirus. SELF HARM ASSESSMENT: Self harm assessment was performed. The patient answered "no" to the question(s) "Have you recently felt down, depressed, or hopeless?", "Do you have thoughts of harming or killing yourself?", "Do you have a plan for harming or killing yourself?", "Have you recently had thoughts about harming or killing others?", "Do you have any dangerous items in your possession?", "Have you noticed less interest or pleasure in doing things?", "Are you here because you tried to hurt yourself?" and "Have you ever tried to hurt yourself before today?". ABUSE ASSESSMENT: No report of abuse. NUTRITIONAL RISK ASSESSMENT: The nutritional risk assessment revealed no deficiencies. FUNCTIONAL ASSESSMENT: Functional assessment: no impairments noted. LEARNING NEEDS ASSESSMENT: The learning needs assessment revealed no barriers. FALL RISK ASSESSMENT: Fall risk assessment completed. No risk factors identified. SKIN INTEGRITY ASSESSMENT: Skin integrity risk assessment completed. No skin integrity risk identified. -- 17:06 01/05/21 Manisha Lucero R.N. Interventions Identification and allergy band on patient. To treatment room. --17:06 01/05/21 Manisha Lucero R.N.PHYSICAL ASSESSMENTAmbulatory to room.GENERAL / NEURO / PSYCH: Alert. Oriented X 4. Appears in pain.HEENT: Mucous membranes are pink.RESPIRATORY: Respirations not labored. Breath sounds within normal limits.CVS: Capillary refill less than 2 seconds.GI / : Abdomen soft. Abdominal tenderness in the right lower quadrant, left lower quadrant and lowerabdomen. Bowel sounds within normal limits. No vaginal bleeding.EXTREMITIES: No lower extremity edema.SKIN: Skin is warm and dry. --18:43 01/05/21 Uma Bennett R.N. 3 Clinical Report - Nurses [facility] Emergency Department [address] [place] [address] Phone #: ext- [phone] 01/05/2021 16:52 Patient: KURT TANNER Sex: F : 1995 Age: 25yNURSING PROGRESS NOTESlate entry - 17:45 01/05/21. Patient ID band checked for patient name and birthdate: patient confirmed.Instructions provided to collect clean catch urine and patient verbalized understanding. Clean catch urinecollected; sample sent to lab for urinalysis. Specimen labeled in the presence of the patient. --18:4301/05/21 Uma Bennett R.N. late entry - 18:00 01/05/21. Cane Flume Watchman provided for the pelvic exam by the physician (Dr. Perez). --19:08 01/05/21 Uma Bennett R.N. 18:10 01/05/2021 Tylenol (APAP) PO Tablets 650 mg given. Allergies verified and confirmed 5 rights. Information reviewed with patient including reason for taking this medication, signs of allergic reaction and precautions. Verbalizes understanding. --18:10 01/05/21 Uma Bennett R.N. Patient gowned. Reassurance given. Three patient identifiers checked. Call light placed in reach. Side rails up x 2. Bed placed in lowest position. Brakes of bed on. Patient ready for evaluation- ED physician notified. --18:43 01/05/21 Uma Bennett R.N. late entry - 18:19 01/05/21. Patient transported to sonogram by wheelchair with mask and technology solutions architect. --18:44 01/05/21 Uma Bennett R.N. Patient returned from sonogram by wheelchair with mask and technology solutions architect. --18:44 01/05/21 Uma Bennett R.N. Reassessment acuity: LEVEL 3. Rounding: Pain: assessed pain level. Proximity of possessions / care items: call light within easy reach. Plug ins: checked status of equipment in use; located all cords, tubes, and lines to prevent fall hazard. Set expectations: advised patient of rounding protocol timing and asked if they needed anything else at this time. The patient is resting quietly. Overall patient status is the same- she states feels the same. Patient waiting for lab and radiology results. --18:44 01/05/21 Uma Bennett R.N. 18:55 01/05/21. BP: 100/61. MAP: 74. HR: 80. RR: 17. O2 saturation: 100%. --18:55 01/05/21 [place] advice line rn, Jose, ER Tech1 19:14 01/05/2021 Macrobid (Nitrofurantoin Monohyd Macro) PO Capsules 100 mg given. Allergies verified and confirmed 5 rights. Information reviewed with patient including reason for taking this medication, signs of allergic reaction and precautions. Verbalizes understanding. --19:14 01/05/21 Uma Bennett R.N. 19:14 01/05/2021 Percocet (oxyCODONE-Acetaminophen) PO Tablets 1 tab given. Allergies verified and confirmed 5 rights. Information reviewed with patient including reason for taking this medication, signs of allergic reaction, precautions and sedative warning. Verbalizes understanding. --19:14 01/05/21 Uma Bennett R.N. 4 Clinical Report - Nurses [facility] Emergency Department [address] [place] [address] Phone #: ext- [phone] 01/05/2021 16:52 Patient: KURT TANNER Sex: F : 1995 Age: 25y 19:14 01/05/2021 Tylenol PO Response: no adverse reaction symptoms are the same. The patient feels the same. ED physician notified. --19:14 01/05/21 Uma Bennett R.N. ( Pt refused pyridium because she did not want it to stain her contacts and did not bring her glasses; MD aware; Otherwise pt states tylenol did not help, pt medicated again for pain, will continue to monitor.). Care transferred and report given (Tej Silva RN). --19:15 01/05/21 Uma Bennett R. N.DISPOSITION / DISCHARGE The patient left prior to discharge education being provided. ( Patient left without discharge instructions. Patient called by out of town collection clerk and requested paperwork be mailed.). --20:31 01/05/21 Tiara Silva 20:30 01/05/21. BP: unable to obtain due to patient not present. HR: unable to obtain due to patient not present. RR: unable to obtain due to patient not present. Temp: unable to obtain due to patient not present. Pain level now unable to obtain due to patient not present. --20:31 01/05/21 Tiara Silva Departure time: late entry - 20:20 01/05/2021. --20:32 01/05/21 Tiara Silva 20:32 01/05/21. O2 saturation: unable to obtain due to patient not present. --20:32 01/05/21 Tiara Silva.Locked/Released at 01/05/2021 20:32 by Tiara Silva Name Value Range Interpretation Code Description Data Joan rce(s) Supporting Document(s) ID Date Data Source [id number] 01/05/2021 04:54:00 PM EDT [facility] 1 Clinical Report - Physicians/Mid Levels [facility] Emergency Department [address] [place] [address] Phone #: ext- [phone] 01/05/2021 16:52 Patient: KURT TANNER Sex: F : 1995 Age: 25y Time Seen: 17:33 01/05/2021; initial patient contact, initial documentation. Arrived- By private vehicle. Historian- patient. Disposition decision: 20:10 01/05/2021.HISTORY OF PRESENT ILLNESS Chief Complaint: PELVIC PAIN. This started 2 days ago and still present (persistent). It was gradual in onset and has been constant. The symptoms are described as moderate. Modifying factors. Not worsened by anything. Not relieved by anything. The patient has had pelvic pain. No pain with urination, urinary frequency, urgency of urination or hematuria. (patient is 4 weeks by LMP had a serum BHCG of 400 2 days ago and had an US which showed free fluid but on IUP. had a repeat BHCG today and was 800 but was sent to the ER for repeat US as she was still having pain denies fevers, no vomiting but admits to nausea. she states that she is prone to d eveloping UTI's but no urinalysis done). Currently .REVIEW OF SYSTEMSNo nausea, vomiting, diarrhea, black stools or headache. No fever, chills, anorexia, eye discomfort orsore throat. No cough, difficulty breathing, chest pain, skin rash or enlarged lymph nodes. All othersystems reviewed and are negative.PAST HISTORYSee nurses notes. Problems: . OB History. Neurocardiogenic syncopy. Lumbar disc disease. Additional Surgeries: Nerve stimulator. Medications: None. Allergies: NSAIDs. Penicillins.SOCIAL HISTORYNever smoker. No alcohol use or drug use. 2 Clinical Report - Physicians/Mid Levels [facility] Emergency Department [address] [place] [address] Phone #: ext- [phone] 01/05/2021 16:52 Patient: KURT TANNER Sex: F : 1995 Age: 25yADDITIONAL NOTESThe nursing notes have been reviewed.PHYSICAL EXAMVital Signs: 01/05/2021 16:55 BP: 100/64. MAP: 76. HR: 77. RR: 18. O2 saturation: 99%. Temp: 96.9 F.Have been reviewed. Oxygen saturation normal.Appearance: Alert. Oriented X3. No acute distress.HEENT: Normal external inspection.ENT: Pharynx normal.Neck: Neck supple.CVS: Heart sounds normal.Respiratory: No respiratory distress. Painless inspiration. Breath sounds normal. Chest nontender.Abdomen: Soft. Moderate tenderness in the right lower quadrant, suprapubic area and left lowerquadrant. Bowel sounds normal. No organomegaly. No mass. No rebound tenderness or guarding.Back: Normal external inspection. No CVA tenderness.: Cane Flume Watchman present (Nurse Uma). Speculum and bimanual exam performed. Normal externalexam. No vaginal discharge or bleeding. No cervical lesions. Cervical dilation present. Cervical osclosed. No cervical discharge. No cervicitis or cervical lesion. No tenderness with movement of thecervix. No adnexal tenderness. No pelvic mass. No pelvic mass. (small uterus).Skin: Skin warm and dry. Normal skin color. No rash. Normal skin turgor.Extremities: Extremities nontender. No lower extremity edema.Neuro: Oriented X 3. Mood/affect normal. No motor deficit.LABS, X-RAYS, AND EKGPelvic Sonogram: FINDINGS:Uterus: Anteverted uterus. The endometrial stripe measures 9 mm. The myometrium ishomogeneous. No intrauterine gestational sac, yolk sac, or pole.Cervix: Unremarkable.Right adnexa: Right ovarian vascular flow, with no torsion.Left adnexa: Nonvisualization of the left ovary.Intraperitoneal space: No free fluid.IMPRESSION:No intra or extra uterine gestation detected. Correlate with serial beta HCG.Laboratory Tests: UA REFLEX TO UA CULTURE: (ASHA: 01/05/2021 18:35) ( [facility] 01/05/2021 19:02) Final results Test Result Flag Units (Reference) UA REFLEX TO UA CULTURE URINALYSIS SOURCE R COLOR yellow (NORMAL: Yello CLARITY clear (NORMAL: Clear SPEC GRAVITY 1.015 (1.001 - 1.030 pH 7 (5 - 9) GLUCOSE NORM (NORMAL: Negat BILIRUBIN NEG (NORMAL: Negat 3 Clinical Report - Physicians/Mid Levels [facility] Emergency Department [address] [place] [address] Phone #: ext- [phone] 01/05/2021 16:52 [id number] Sex: F : 1995 Age: 25y KETONE NEG (NORMAL: Negat PROTEIN NEG (NORMAL: Negat NITRITE NEG (NORMAL: Negat BLOOD NEG (NORMAL: Negat LEUK EST 25 (NORMAL: Negat UROBILINOGEN NOR (less than 1.0 MICROSCOPIC See Below WBC 20 - 30 A (NORMAL: NONE RBC 0 - 1 (NORMAL: NONE EPITHELIAL MANY A (NORMAL: NONE BACTERIA 3+ LARGE A (NORMAL: NONEBeta-HCG, Quant Serum: (ASHA: 01/05/2021 18:03) ( [facility] 01/05/2021 18:36) Final results Test Result Flag Units (Reference) HCG QUANT 967.4 mIU/mL Interpretation: Less than 5 mU/mL: Negative6-10 mU/mL: Borderline (suggest repeat in 48 hours) >10: PositiveApprox HCG range (mU/mL) Weeks post LMP 5.4-708 mU/mL 3-4 Ebjjn266-88592 mU/mL 5-6 Weeks 4059-400721 mU/mL 7-8 Anekr21271-555854 mU/mL 9-10 Weeks 68656-40169 mU/mL 12-14 Tkdad07522-03095 mU/mL 15-16 Weeks 8240-97721 mU/mL 17-18 WeeksCBC w Diff: (ASHA: 01/05/2021 18:03) ( MsgRcvd 01/05/2021 18:12) Final results Test Result Flag Units (Reference) CBC W/AUTOMATED DIFF COMPLETE BLOOD COUNT WBC 8.5 10/uL (4.2 - 11.0) RBC 4.25 10/uL (4.20 - 5.40) HEMOGLOBIN 13.2 g/dL (12.0 - 16.0) HEMATOCRIT 38.6 % (37.0 - 47.0) MCV 90.8 fL (81.0 - 101) MCH 31.1 pg (27.0 - 34.0) MCHC 34.2 g/dL (31.0 - 36.0) RDW 12.0 % (11.5 - 14.5) PLATELETS 361 10/uL (150 - 450) MPV 8.9 fL (7.4 - 10.4) NEUT 54.5 % (37.0 - 80.0) LYMPH 35.1 % (25.0 - 40.0) MONO 7.4 % (3.0 - 8.0) EOS 1.9 % (0.0 - 7.0) BASO 0.9 % (0.0 - 2.5) %IG 0.2 H % (0.0 - 0.0) %NRBC 0.0 % (0.0 - 0.0) #NEUT 4.60 10/uL (2.00 - 6.90) #LYMPH 2.97 10/uL (0.60 - 3.40) #MONO 0.63 10/uL (0.00 - 0.90) #EOS 0.16 10/uL (0.00 - 0.70) #BASO 0.08 10/uL (0.00 - 0.20) #IG 0.02 10/uL (0.00 - 0.10) #NRBC 0.00 10/uL (0.00 - 0.00) MANUAL DIFF NOT INDICATED RBC MORPH NOT INDICATEDCMP: (ASHA: 01/05/2021 18:03) ( MsgRcvd 01/05/2021 18:35) Final results Test Result Flag Units (Reference) COMPREHENSIVE METABOLIC PANEL COMPREHENSIVE METABOLIC PANEL 4 Clinical Report - Physicians/Mid Levels [facility] Emergency Department [address] [place] [address] Phone #: chp- [phone] 01/05/2021 16:52 Patient: KURT TANNER Sex: F : 1995 Age: 25y SODIUM 137 mEq/L (134 - 153) POTASSIUM 3.7 mEq/L (3.6 - 5.0) CHLORIDE 101 mEq/L (98 - 107) CO2 23 MEQ/L (22 - 30) GLUCOSE 98 MG/DL (70 - 99) BUN 9 MG/DL (7 - 21) CREATININE 0.6 L MG/DL (0.7 - 1.5) BUN/CREAT 15 (8 - 27) TOTAL PROTEIN 6.8 G/DL (6.3 - 8.2) ALBUMIN 4.5 G/DL (3.9 - 5.0) GLOBULIN 2.3 L GM/DL (2.4 - 3.2) A/G RATIO 2.0 (0.8 - 2.0) CALCIUM 9.4 MG/DL (8.4 - 10.2) TOTAL BILI <0.7 MG/DL (0.2 - 1.3) ALKALINE PHOS 68 U/L (38 - 126) SGOT/AST 14 U/L (5 - 40) SGPT/ALT 10 U/L (7 - 56) ANION GAP 13.0 mmol/L (8.0 - 16.0) AGE 25 yrs NON-AA GFR >60 mL/min AFR AMER GFR >60 mL/min Male GFR Interprentation 20-49 yrs >60 mL/min Normal 50-59 yrs >56 mL/min Normal 60- 69 yrs >49 mL/min Normal 70-79yrs >42 mL/min Normal 80 and above >35 mL/min Normal Female GFR Interpretation 20-39 yrs >60 mL/min Normal 40-49 yrs >58 mL/min Normal 50-59 yrs >51 mL/min Normal 60-69 yrs >45 mL/min Normal 70-79 yrs >39 mL/min Normal 80 and above >32 mL/min Normal.PROGRESS AND PROCEDURESCourse of Care: 19:06 01/05/21. 25 y/o female presents to the ER with complaint of lower abdominalpain. she is 4 weeks . had BHCG done 2 days ago which was 400, US did not show anyIUP. was seen today at [facility] and had repeat BHCH which doubled up to 800 but sent here forrepeat US as she was still having pain. on exam she had tenderness on the lower abdomen, norebound no guarding. she had minimal discharge on vaginal exam . she has tenderness on the suprapubicarea. no adnexal masses notes. she was given tylenol for pain without relief. she has a UTI. USpending but BHCG is 967. explained to her that I can give her narcotics but can cause problems with thefetus, she understands and still asking for pain medication. given Percocet for pain. she was also givenPyridium and Macrobid for UTI 20:03 01/05/21. pelvic US read as FINDINGS: Uterus: Anteverted uterus. The endometrial stripe measures 9 mm. The myometrium is homogeneous. No intrauterine gestational sac, yolk sac, or pole. Cervix: Unremarkable. Right adnexa: Right ovarian va scular flow, with no torsion. Left adnexa: Nonvisualization of the left ovary. Intraperitoneal space: No free fluid. 5 Clinical Report - Physicians/Mid Levels [facility] Emergency Department [address] [place], [place] [address] Phone #: ext- [phone] 01/05/2021 16:52 Patient: KURT TANNER Sex: F : 1995 Age: 25y No intra or extra uterine gestation detected. Correlate with serial beta HCG. patient states abdominal pain better after percocet. Patient counseled in person regarding the patient's stable condition, test results, diagnosis and need for follow-up. Patient agrees with plan of care. 20:09. Disposition: Discharged home in good and improved condition (20:10). Condition: good and stable. Discharge decision based on the following: patient's condition is stable; patient's exam is stable; minimally abnormal test results; stable con dition on repeat evaluation; social support is adequate; transportation is available; follow-up is available; clinical impression is consistent with outpatient treatment.CLINICAL IMPRESSION Acute suprapubic abdominal pain. First trimester . Acute urinary tract infection with cystitis. No hematuria.INSTRUCTIONS Drink plenty of fluids. (take the macorbid for UTI as well as the pyridium for lower abdominal discomfort. your BHCG has increased to 967. follow up with your docotr in 2 days if not better.). Your Current Medications: . No home medication. Prescription Medications: Pyridium 200 mg ta blet Take 1 tablet three times a day for 2 days -- Dispense 6 tablet. Refills: 0. Substitution permitted. Pharmacy - [facility] [id number] ; [place] [address]. . Macrobid 100 mg capsule Take 1 capsule twice a day for 7 days -- Dispense 14 capsule. Refills: 0. Substitution permitted. [facility] [address] ; [place] [address]. . Follow-up: Follow up with your healthcare provider in two if not better. Reason for referral: evaluation. Summary of 6 Clinical Report - Physicians/Mid Levels [facility] Emergency Department [address] [place] [address] Phone #: ext- [phone] 01/05/2021 16:52 Patient: KURT TANNER Sex: F : 1995 Age: 25y care provided to patient via paper.(Electronically signed by Virginia John 01/05/2021 21:42) Name Value Range Interpretation Code Description Data Joan rce(s) Supporting Document(s) ID Date Data Source [id number] 01/05/2021 04:54:00 PM EDT [facility] Addenda for KURT TANNER VisitID: [id number] Date: 18:50Lab results reviewed, urine culture sensitivity results show E.Coli 50,000-100,000 cfu/ml sensitive toMacrobid which patient was prescribed.(Electronically signed by Yoly Leblanc RN - 01/10/2021 18:50) Name Value Range Interpretation Code Description Data Joan rce(s) Supporting Document(s) ID Date Data Source [id number] 01/06/2021 08:34:00 [place] [address] PHONE: [phone] FAX: [phone] Name .................. : FLORES HICKS Acct Number.................. : [id number] ROOM. ................. : TR- MR Number ................... : [id number] Stay type ............. : E/R Discharge Date......... ... : 01/05/21 Admit Date ......... : 01/05/21 Admit Phys .................... : ALVARO Date of ....... : 1995 Family Phys ................... : LAKSHMI [employer] Phone .................. : [phone] Age ................................ : 25 Film# .................. .:[id number] Sex ................................. : F Unsigned transcriptions are preliminary reports and do not represent a medical or legal document US OB 1ST TRI W TV IF NEEDED [id number] COMPLETE:01/05/21 19:29 [facility] [id number] Reason(s): right lower abdominal pain 4 weeks ULTRASOUND OBSTETRICAL FIRST TRIMESTER INDICATION: 4 weeks , abdominal pain COMPARISON: None FINDINGS: Endovaginal scanning performed. No intrauterine gestation is identified. Endometrial thickness 9 mm. Maternal right ovary 2.3 x 2.3 x 1.7 cm. Color- flow/Doppler imaging demonstrates blood flow to the ovary. No adnexal masses seen. Maternal left ovary not identified. No left adnexal mass. No free fluid identified. IMPRESSION: No intrauterine gestation identified. The findings are not specific. The differential diagnosis includes early intrauterine and ectopic . Follow up is recommended to confirm a viable IUP. Preliminary report for this exam was provided by [facility]. Electronically Reviewed and Signed By Ajay Saab MD , 01/06/21 08:34, JWS Transcribe Initials: STEFANI , Transcribe Date: 01/05/21 22:56, Dictation Date: Copy for: EMERGENCY DEPT via modem Copy for: 710 MED REC DISCHARGED Page 1 of 1 Name Value Range Interpretation Code Description Data Joan rce(s) Supporting Document(s) ID Date Data Source [id number] 01/10/2021 04:37:00 PM EDT [facility] Name Value Range Interpretation Code Description Data Joan rce(s) Supporting Document(s) CULTURE URINE [facility] _CULTURE URINE_$$[id number]$$[id number]$$[id number]$$[id number]$$[id number]$$[id number]$$[id number]$$412096$$[id number]$$ 725491$$600028$$368974$$782722$$430658$$312755$$401866$$586630$$428323$$684874$$ 338370$$449361$$852486$$651082$$295647$$648964$$[id number]$$[id number] -- Continued on next page --Patient: FLORES BURTONOMI Order: [id number] Page 2Culture: CULTURE URINE Status: Final ==== -- Continued on next page --Patient: FLORES BURTONOMI Order: [id number] Page 2Culture: CULTURE URINE Status: Prelim =====$$[id number]$$[id number] DATE/TIME: 01/10/2021 13:05Culture: CULTURE URINE Status: FinalIsolate 1 Escherichia coli Flag: A . . . . . . .1Cefazolin <=4 ug/mLCefazolin with an PAL <=16 predicts susceptibility to the oral agentscefaclor, cefdinir, cefpodoxime, cefprozil, cefuroxime, cephalexin,and loracarbef when used for therapy of uncomplicated urinary tractinfections due to E. coli, Klebsiella pneumoniae, and Proteusmirabilis.50,000-100,000 colony forming units per mL Previous result entered on 01/08/2021 08:24 ET Escherichia coli50,000-100,000 colony forming units per mLUrine Culture,Comprehensive: T2Kmuoimzfsrj coli Flag: APatient: FLORES HICKS Order: [id number] Page 3Culture: CULTURE URINE Status: Final ====ISOLATE 1 Escherichia coli Isolate 1Antibiotic PAL IntUnits ug/mL ----Amoxicillin/Clavulanic Acid S S . . . . . .20-8Ampicillin R R . . . . . .28-1Cefepime S S . . . . . .6644-9Ceftriaxone S S . . . . . .141-2Cefuroxime S S . . . . . .145- 3Ciprofloxacin S S . . . . . .185-9Ertapenem S S . . . . . .51417-3Idnljdvjbw S S . . . . . .267-5Imipenem S S . . . . . .279-0Levofloxacin S S . . . . . .26849-1Eutgkkhoe S S . . . . . .6652-2Nitrofurantoin S S . . . . . .363- 2Piperacillin/Tazobactam S S . . . . . .412-7Tetracycline R R . . . . . .496-0Tobramycin S S . . . . . .508-2Trimethoprim/Sulfa S S . . . . . .516-5P1 Test performed by: [facility] #: [id number] [facility] [id number] [facility] [id number] Director : Bradford Shaffer MD NPI #:Chief Learning Officer : 01/08/21.0925.XMT.SENT REF 01/10/21.1637.XMT.SENT REF ID Date Data Source [id number] 01/05/2021 07:01:00 PM EDT [facility] Name Value Range Interpretation Code Description Data Joan rce(s) Supporting Document(s) UA REFLEX TO UA CULTURE [facility] URINALYSIS SOURCE R [facility] COLOR yellow NORMAL: Yellow [facility] CLARITY clear NORMAL: Clear [facility] Specific gravity of Urine by Test strip 1.015 1.001 - 1.030 [facility] pH 7 5 - 9 [facility] Glucose [Mass/volume] in Urine by Test strip NORM NORMAL: Negat [facility] Bilirubin.total [Presence] in Urine by Test strip NEG NORMAL: Negative [facility] Ketones [Presence] in Urine by Test strip NEG NORMAL: Negative [facility] Protein [Mass/volume] in Urine by Test strip NEG NORMAL: Negat [facility] Nitrite [Presence] in Urine by Test strip NEG NORMAL: Negative [facility] BLOOD NEG NORMAL: Negative [facility] Leukocyte esterase [Presence] in Urine by Test strip 25 ABI L: Negative [facility] Urobilinogen [Mass/volume] in Urine by Test strip NOR less murray n 1.0 mg/dL [facility] MICROSCOPIC See Below [facility] WBC 20 - 30 NORMAL: NONE SEEN A [facility] Erythrocytes [#/volume] in Urine by Test strip 0 - 1 NORMAL: NON E SEEN [facility] EPITHELIAL MANY NORMAL: NONE SEEN A [facility] Bacteria [Presence] in Urine sediment by Light microscopy 3+ LARGE NORMAL: NONE SEEN A [facility] ID Date Data Source [id number] 01/05/2021 06:36:00 PM EDT [facility] Name Value Range Interpretation Code Description Data Joan rce(s) Supporting Document(s) Choriogonadotropin.intact [Units/volume] in Serum or Plasma 967.4 mIU /mL [facility] Interpr etation: Less than 5 mU/mL: Negative 6-10 mU/mL: Borderline (suggest repeat in 48 hours) >10: Positive Approx HCG range (mU/mL) Weeks post LMP 5.4-708 mU/mL 3-4 Weeks 217-14664 mU/mL 5-6 Weeks 4059-656385 mU/mL 7-8 Weeks 68321-306426 mU/mL 9-10 Weeks 71161-28733 mU/mL 12-14 Weeks 54710-72936 mU/mL 15-16 Weeks 8240- 88001 mU/mL 17-18 Weeks ID Date Data Source [id number] 01/05/2021 06:35:00 PM EDT [facility] Name Value Range Interpretation Code Description Data Joan rce(s) Supporting Document(s) COMPREHENSIVE METABOLIC PANEL [facility] COMPREHENSIVE METABOLIC PANEL Sodium [Moles/volume] in Serum or Plasma 137 mEq/L 134 - 153 [facility] Potassium [Moles/volume] in Serum or Plasma 3.7 mEq/L 3.6 - 5.0 [facility] Chloride [Moles/volume] in Serum or Plasma 101 mEq/L 98 - 107 [facility] Carbon dioxide, total [Moles/volume] in Serum or Plasma 23 MEQ/L 22 - 30 [facility] Glucose [Mass/volume] in Serum or Plasma 98 MG/DL 70 - 99 [facility] BUN 9 MG/DL 7 - 21 [facility] Creatinine [Mass/volume] in Serum or Plasma 0.6 MG/DL 0.7 - 1.5 L [facility] BUN/CREAT 15 8 - 27 [facility] Protein [Mass/volume] in Serum or Plasma 6.8 G/DL 6.3 - 8.2 [facility] Albumin [Mass/volume] in Serum or Plasma 4.5 G/DL 3.9 - 5.0 [facility] Globulin [Mass/volume] in Serum by calculation 2.3 GM/DL 2.4 - 3.2 L [facility] A/G RATIO 2.0 0.8 - 2.0 [facility] Calcium [Mass/volume] in Serum or Plasma 9.4 MG/DL 8.4 - 10.2 [facility] Bilirubin.total [Mass/volume] in Serum or Plasma <0.7 MG/DL 0.2 - 1.3 [facility] Alkaline phosphatase [Enzymatic activity/volume] in Serum or Plasma 68 U/L 38 - 126 [facility] Aspartate aminotransferase [Enzymatic activity/volume] in Serum or Plasma 14 U/L 5 - 40 [facility] Alanine aminotransferase [Enzymatic activity/volume] in Seru m or Plasma 10 U/L 7 - 56 [facility] Anion gap 3 in Serum or Plasma 13.0 mmol/L 8.0 - 16.0 [facility] AGE 25 yrs [facility] NON-AA GFR >60 mL/min [facility] AFR AMER GFR >60 mL/min [facility] Male GFR In terprentation 20-49 yrs >60 mL/min Normal 50-59 yrs >56 mL/min Normal 60-69 yrs >49 mL/min Normal 70-79yrs >42 mL/min Normal 80 and above >35 mL/min Normal Female GFR Interpretation 20-39 yrs >60 mL/min Normal 40-49 yrs >58 mL/min Normal 50-59 yrs >51 mL/min Normal 60-69 yrs >45 mL/min Normal 70-79 yrs >39 mL/min Normal 80 and above >32 mL/min Normal ID Date Data Source [id number] 01/05/2021 06:12:00 PM EDT [facility] Name Value Range Interpretation Code Description Data Joan rce(s) Supporting Document(s) CBC W/AUTOMATED DIFF [facility] COMPLETE BLOOD COUNT Leukocytes [#/volume] in Blood by Automated count 8.5 10^3/uL 4.2 - 1 1.0 [facility] Erythrocytes [#/volume] in Blood by Automated count 4.25 10^6/uL 4. 20 - 5.40 [facility] Hemoglobin [Mass/volume] in Blood 13.2 g/dL 12.0 - 16.0 [facility] Hematocrit [Volume Fraction] of Blood by Automated count 38.6 % 3 7.0 - 47.0 [facility] Erythrocyte mean corpuscular volume [Entitic volume] by Auto mated count 90.8 fL 81.0 - 101 [facility] Erythrocyte mean corpuscular hemoglobin [Entitic mass] by Automated count 31.1 pg 27.0 - 34.0 [facility] Erythrocyte mean corpuscular hemoglobin concentration [Mass/volume] by Automated count 34.2 g/dL 31.0 - 36.0 [facility] Erythrocyte distribution width [Ratio] by Automated count 12.0 % 11.5 - 14.5 [facility] Platelets [#/volume] in Blood by Automated count 361 10^3/uL 150 - 45 0 [facility] Platelet mean volume [Entitic volume] in Blood by Automated count 8.9 fL 7.4 - 10.4 [facility] Neutrophils/100 leukocytes in Blood by Automated count 54.5 % 37. 0 - 80.0 [facility] Lymphocytes/100 leukocytes in Blood by Manual count 35.1 % 25.0 - 40.0 [facility] Monocytes/100 leukocytes in Blood by Automated count 7.4 % 3.0 - 8.0 [facility] Eosinophils/100 leukocytes in Blood by Automated count 1.9 % 0.0 - 7.0 [facility] Basophils/100 leukocytes in Blood by Automated count 0.9 % 0.0 - 2.5 [facility] %IG 0.2 % 0.0 - 0.0 [facility] %NRBC 0.0 % 0.0 - 0.0 [facility] Neutrophils [#/volume] in Blood by Automated count 4.60 10^3/uL 2.00 - 6.90 [facility] Lymphocytes [#/volume] in Blood by Automated count 2.97 10^3/uL 0.60 - 3.40 [facility] Monocytes [#/volume] in Blood by Automated count 0.63 10^3/uL 0.00 - 0.90 [facility] Eosinophils [#/volume] in Blood by Automated count 0.16 10^3/uL 0.00 - 0.70 [facility] Basophils [#/volume] in Blood by Automated count 0.08 10^3/uL 0.00 - 0.20 [facility] #IG 0.02 10^3/uL 0.00 - 0.10 [facility] #NRBC 0.00 10^3/uL 0.00 - 0.00 [facility] MANUAL DIFF NOT INDICATED [facility] RBC MORPH NOT INDICATED [facility] ID Date Data Source [id number] 01/04/2021 09:35:[address] [facility] Name Value Range Interpretation Code Description Data Joan rce(s) Supporting Document(s) ED Provider Note [facility] FPWGMa3vIjBKYpGt08/KCJdmVYBgv5YsHUvcKMd5BHbyIUDiZ5MnVAE4gS0bIPE5NZfVJaBhRiEjWIFk lbm [file] SdzFabMFVMUVJkoAYbTAAUq6CkztRhxYSMHNLsUQA9 RJFcBRTbdUzhMo9gKSYyPG9dMP6sEYFbXZH4VcW1SEIOHO7VXHWmVZNxjTBiIBW6BENuHnDeAPstMGIp KAZ9NP79zVbbHG4RAIOoPHJlOW83DDN8ZAMgYq9FNAHnUKLscyF3ClWmAMUBKn7+DQplbmRvYmoNCjU0 KMTiv1PxYAy7VM6MIRAlEXgqVE7HYKCtkI4fKBkiCY 1PEbW6RHMkZDOWIsYzZ00epHTfVVm6A7XvGiSaKCYnJadoFKTgOBzlYmGwVZXaLnIrMEprWK2+ID4+DQ knDB2LMLfyrgScYGAjMe5VVIDbJGTeUD4lVLPjLATzI5K1xRglTWEJXmZwO1yfqwlbPB2lSYOlS039hT hhfjDuPEK5POXgUh5FQDBbLVQ1EFWzgGPdGYCiJCRO WSfpJA1QbSDxMLL8aV2jOBngAROpAPTuI2kKArKcvWapUJ24oLxqawNzyUStCAi+Ql2UEO6dj4ZgUSk9 mlQgDIqtRWN1ZOvcKARqUGIvZKHtBDF8TXC5JFNBSlHgIYToAVUtTRwbKXYfBTVvpc1NEHDaBXR6DLQo ANFiJDLzQAXwWKtiBPLlGVY1Zoe3QRKqFFPsFU2IGn HlQRXyFPKiZPiaVOBnBQYsul3XDFIdATUcXmexXSUlXDIrZFQyHChpHQXtOGQkOKYaKSGyQKYqDO1HAu AqIXMwZFRjGqavTRKjBDUziu4KFVWzJEMsLFU6NoBkPNErRQTiQPejVPCyXBJ0ETX0KJTmHHEiJF2SWq MrHNNlRXcqVmwpVVIaFQTosd2XJDQuCRZvBnr8MWUo TDWfJLDlWFatCTBzFNGsJYKvXCRxNXJrMC2DDzCvSIDsBRE3THShASOwOWZakl7DTOKrANYcVgYhTxZs XSXwIOBfMDhsJDMrYII8XjK1BYCeZMKvIH2JInFxMDViCCz4SvLbWOEmJNYhwd1MZJTuIRIpRPBmTLKk LMZtXPHaBLacCMFrOWXsEZK0BVBjFOYaXW4FXrSeIB NhOoF9VTZwZODtXIVovc2NESCiPVBnQAY5GYGkSMBtRRQbVRipNPNyFVL4KpdxNFZhRFByZQ1KDzDvNO CfZdh1DeniBROmPOJbxr6LHYKpHYXkDUi5KnDhSPXoIXMtNAiwWHEtQEAtBPKiZDDyERSaPQ5ISsSmEF ExWxQ6WJwgJEViTQQaou8RRJWdISOxIWIgZASpOMXq DNSaTIdrDXXtGJA2EwW9MLBqMDIeTB2ZZbLiMCBoUap5UsNhPVGnTNTdie4BLUTnVUVkTBu3BXOcEFKx QVDaCYobOMLdVXR9OYr7JSImONOqAG6ICpHrSBDbCrofQtHpSHBwMYJloc4XSVPtHCL0TFFgOXOaBDXe BWIsDCicSTLnJUUvJFVvJFSpQHGrVD0JPuRxDHNbKB G7IItsMFOlHFXxfm1FAKRtIKS4CEl1OERnNMRzOBAlAZsuASJdFBZtYiAzZSWoKGBbFI2ZPyCpPZIqNF B2QbDwIXWfVEGnyv0PEROdEAM1Wzo1XMHrWGHfMOGoQGehXZYtUPWeCOC3HBIdFFUoVT7LCuYxIVIlTS N8DOOlNRBiUIVaip0WFZNrGLF3HQZnVYKtHCWrUNZc NUeyDTGaHJJ1GxJ5CGEqGFWjEW4QCxVrLSQlDDYnPeUuKUMfBJCobj4JHSHeYVX9GYR9EHZpOYYcIUZm WOjmYTMhUKQ4OHLaWIVzITRwCL6IXqAoKQHzCQA5BJSyQFHsVTMypb7FXPUlBLC5FmR8IKHdDQQgHUFc MEqcGZRoKVC6BFRoTEDeWMZhIC6TDzSbQXCdTQd0OI TcXPErGTTqem7AHZLkYXM0Uwk1GyCqBYFnFUNaJLlbQJIwJFN9XLv7XDTpAILwXC1HXpEdBLZjZWasCT DeXSLmFLPhcl4MIWRiJCD2QMFgOLXlEKRaPQFmGJexXFIhFBW6DHt9BFJtSZLkSD5CAqQuHMgfKYQAPd s5JJpiU9k6QLG1GL9YQ7Uql4UvRXUbGFYHGEvcYS4m bcGsKIFbQk4IV6hYKdenCbg2TCH6BMGhCcAtMZV5CMJ0WZsbPtK1NJepStZvWq2bNBOsEtujDgY3VkG9 KFNsMdX1GNy6NQLwZea5EYEnPUCwIrGoIG9GZe7IVoA3WHT8mQQtAx9RRZk8GMQHQdRbAQ6SJQt= ID Date Data Source [id number] 01/04/2021 06:32:[address] [facility] Name Value Range Interpretation Code Description Data Joan rce(s) Supporting Document(s) Consultation [facility] GSXKSg7pCnFRLrPo61/ZBPiwURPxo3IiPUhsWTb6AOevEYArH5PyVDI3kA0mXKA1QEyXPnIfQbAfZZHl lbm [file] ICAgICAgICAgICAgICAgICAgICAgICAgICAgICAgIC AgICAgICAgICAgICAgICAgICAgICAgICAgICAgICAgICAgICAgICAgDQogICAgICAgICAgICAgICAgIC AgICAgICAgICAgICAgICAgICAgICAgICAgICAgICAgICAgICAgICAgICAgICAgICAgICAgICAgICAgIC AgICAgICAgICAgICAgICAgICAgICAgDQogICAgICAg ICAgICAgICAgICAgICAgICAgICAgICAgICAgICAgICAgICAgICAgICAgICAgICAgICAgICAgICAgICAg ICAgICAgICAgICAgICAgICAgICAgICAgICAgICAgICAgDQogICAgICAgICAgICAgICAgICAgICAgICAg ICAgICAgICAgICAgICAgICAgICAgICAgICAgICAgIC AgICAgICAgICAgICAgICAgICAgICAgICAgICAgICAgICAgICAgICAgICAgDQogICAgICAgICAgICAgIC AgICAgICAgICAgICAgICAgICAgICAgICAgICAgICAgICAgICAgICAgICAgICAgICAgICAgICAgICAgIC AgICAgICAgICAgICAgICAgICAgICAgICAgDQogICAg ICAgICAgICAgICAgICAgICAgICAgICAgICAgICAgICAgICAgICAgICAgICAgICAgICAgICAgICAgICAg ICAgICAgICAgICAgICAgICAgICAgICAgICAgICAgICAgICAgDQogICAgICAgICAgICAgICAgICAgICAg ICAgICAgICAgICAgICAgICAgICAgICAgICAgICAgIC AgICAgICAgICAgICAgICAgICAgICAgICAgICAgICAgICAgICAgICAgICAgICAgDQogICAgICAgICAgIC AgICAgICAgICAgICAgICAgICAgICAgICAgICAgICAgICAgICAgICAgICAgICAgICAgICAgICAgICAgIC AgICAgICAgICAgICAgICAgICAgICAgICAgICAgDQog ICAgICAgICAgICAgICAgICAgICAgICAgICAgICAgICAgICAgICAgICAgICAgICAgICAgICAgICAgICAg ICAgICAgICAgICAgICAgICAgICAgICAgICAgICAgICAgICAgICAgDQogICAgICAgICAgICAgICAgICAg ICAgICAgICAgICAgICAgICAgICAgICAgICAgICAgIC GlHWUsOSXuPLJaAZPqJQIwGJTfOGWpUKPzRASxWTTyVBZdTIUbWPHoYCVuICBpBJBcWKh2S0unYKAiEW TgCU0pFYv5Ll4+DEtMWaPyZSL2wvXskS5ZYF3ag9VoYGmfWCLne0DiFZt1SO8HPKEyRNjfHO1PWXvlmd 2FTGEuWAGisZOAj6qbKeOhLDL6HXItOdunZH7TYYIl Z5ppcfTkPHDkQJXAKWlzJESMWPtfTOHLFT5PRpEzM7BtyH41KRXHLx5+VFbbvsJoVwxTSxX6LBYmx1Gd QIp1MB4SLXSsKhmjg4DkYhpfCLPVINsjZT6XWDR0XEQ8YFBrOl7DRDHnZ245xwXbUK9WGe2GNiFqQD2t ho9DNpelCLDqKxbOEbx5NEueZU4PoSMuXJkQi04ivH q8ppFvmACGxEOknN3KcGZdURQlFRFyqkbuNTVwRNMwDB2lLF9sBIPmFZGtVnDaPEPETT7REZZeHTNyxD NuQKFiYMYKYB0WHYurNGL7LUFgczKcpZMsNAlyIF7KYPNtteLpQpEbNYUTZEg+Aj1VZJ0vw8WjMUlnAT FxIL8wws4MUWzCNkBjU7N2iKBaH4E3MTigAj2WJJTr WTVtWhRdQAJFWZtsIU0JPE7fziI5UU7HcDHxMTMnQEFbiYOzVOl8H71eaKUgVBrnAH2FEID+Clay+Pg0K FZChNRAwITNbDpYcTUUOYcWkJ1WxC3BVi0XeX8MxUJ54kXbbvdKbSVocOC0TSN0rJLZgZENMZK0XvLNw wG6lxrOgWeRtBYOLMdQlN10liZPgETMdRMD7BFQjSg 0YFFXdX0IadkQskEwckeNvSRByJEFVSB3ISWbvqsCxfSPidRgbNZ39jFklGC1RRy5SGaVlWN6obs1PfI CnHe9NTNClCG6ZZHYrRWPfMQEuTGI5GJCaEgWkIYbqJQAgVRIbAEG9LFSzRNDzGP1IRiZbKVDrIiBqLK KkTOYmCIVios1AXWWwPYUmFCGaLVBuRZInEZQeITcf RGUyARCoPXO1UICpRWVuWB2EIvCcFDAiKWW2YltwGKNgBDSpws8TNTArHJNcAuw8ULZxKGJtTGOkSKbx ZJWkWFF1KgR0SYCtQLEbPU8HWiLbREXoKZY5HWInFAWaTTMblo3DMHZqAGTrMFxhXPDaXGKbUZMqKKpe EZAfSLVuTVH2DOSvEJUjQD7ROqIzEQEqHXJ1LGxnLM LqTHZjbv9NIXPtDKIaKBT6NUIbBFHmAJHoZCtuJNYwWRPeDbt3RSKlLWBnDJ1ZSbRwGQYnEQLfXpjnSJ XiSCXiky4MGFBoTBDsDwNcYASnEMCvZOZtADbcGJJnOUWfJdW7NAEvOSTwHK3BSoNnNEYzMGP4SIgqJC QjCTCeez9QCCJpQWLhFjb5WHHnNVLaYJTlEVkuKVGn BEV2WRU9PHUcTPSkWY2VKxZaUMHlAzY1WCMqMGUrITVkwl3HRHWrTLNzLWw9ZLSxLESvEELgIWjpTKIc VXG2EOt0PEOdBVYtGA8HTnGvNEXtDxNwWLhvXRScBTBnua0NSAEgHMExIuO2RBArIMJmKOSvTRlbVQEu JZQ6EzxoTOBlBTQgLD8PZgMtWMDjBwpcIuIcLWHoPL Uuua6WJTKxUVUcTZSgNtIwJRDaBMPrITzmIJAeLFK6AFZ1IDXhUTGvQN4ARoNxZJiwNKBXRra8BSejM6 d4TEPmGQ1DP1Kea9RfLgclQPTOCYatEA8uciRtVMFiEw5KC8fDPpx5ZSXpSwJ6L7YiQGCmJrI8OlQwCT VgAkX6RGEgEtDyJZ3wBQgkXOB5BKxeRbShIhZoNECg AJXoH0PuVMI8LJB6NNZbIkJbTM1UQg0RNdN1MOC1sELlDw4UEun8XYINCrAoSW5CJMz= ID Date Data Source [id number] 01/04/2021 01:06:[address] [facility] US ABDOMEN LIMITED [id number] RESULTInte rpreted by:CHERI Campbell INFORMATION: Exam: US Abdomen, Limited; Appendix Exam date and time: 01/04/2021 12:18 AM Age: 25 years old Clinical indication: with inconclusive viability, not applicable or unspecified; Illness, unspecified; Abdominal pain; Generalized; ; Additional info: Rlq, eval for appendicitis TECHNIQUE: Imaging protocol: US abdomen. Real time ultrasound with image documentation. Limited exam focused on the appendix. COMPARISON: US OB TRANSVAGINAL [id number] 01/03/2021 9:56 PM FINDINGS: Appendix: The appendix was not visualized. Acute appendicitis cannot be excluded. Intraperitoneal space: There is a trace amount of free fluid in the right lower quadrant. IMPRESSION: 1. The appendix was not visualized. Acute appendicitis cannot be excluded. 2. There is a trace amount of free fluid in the right lower quadrant. THIS DOCUMENT HAS BEEN ELECTRONICALLY SIGNED BY MADI ESCOTO MDThis document has been electroni andreina signed by Madi Escoto MD on 01/04/2021 1:06 AM Name Value Range Interpretation Code Description Data Joan rce(s) Supporting Document(s) ID Date Data Source [id number] 01/03/2021 11:08:[address] [facility] US OB TRANSVAGINAL [id number] RESULTInte rpreted by:CHERI Campbell INFORMATION: Exam: US , Transvaginal Exam date and time: 01/03/2021 9:56 PM Age: 25 years old Clinical indication: complicated by abdominal or pelvic pain; Right lower quadrant; First trimester (<14 weeks 0 days); Gestational age or lmp: 3 wk 6 day from lmp; ; Additional info: Rlq abdominal pain, spotting, +home preg test TECHNIQUE: Imaging protocol: Real- time transvaginal obstetrical ultrasound of the maternal pelvis [...] 1.4 cm. Left adnexa: The left ovary measu res 2.5 x 1.6 x 1.7 cm. IMPRESSION: 1. No evidence of a gestational sac. This could represent miscarriage. 2. The right ovary measures 2.9 x 2.1 x 2.1 cm. There is a slightly low echogenicity lesion within the right ovary measuring 2.2 x 1.2 x 1.4 cm. This could represent corpus luteum. No pole was visualized. Ectopic cannot be fully excluded and follow-up with serial HCG levels and ultrasound is recommended for further evaluation.THIS DOCUMENT HAS BEEN ELECTRONICALLY SIGNED BY MADI ESCOTO MDThis document has been electronically signed by Madi Escoto MD on 01/03/2021 11:08 PM Name Value Range Interpretation Code Description Data Joan rce(s) Supporting Document(s) ID Date Data Source [id number] 01/03/2021 09:36:[address] [facility] Name Value Range Interpretation Code Description Data Joan rce(s) Supporting Document(s) Choriogonadotropin.beta subunit free [Units/volume] in Serum or Plasma 381 [IU]/L <5 H [facility] (NOTE)Levels between 5 and 25 [IU]/L may indicate earlypregnancy and should be repeated after 48 hours. ID Date Data Source [id number] 01/03/2021 09:39:57 PM [facility] Name Value Range Interpretation Code Description Data Joan rce(s) Supporting Document(s) aPTT in Platelet poor plasma by Coagulation assay 27.6 s 24.0-33. 0 [facility] ID Date Data Source [id number] 01/03/2021 09:39:57 PM [facility] Name Value Range Interpretation Code Description Data Joan rce(s) Supporting Document(s) Prothrombin time (PT) 13.1 s 11.6-14.0 [facility] INR in Platelet poor plasma by Coagulation assay 1.03 [facility] Routine intensity oral anticoagulation I NR is typically 2.0-3.0. Target INR must be clinically individualized. ID Date Data Source [id number] 01/03/2021 09:43:35 PM [facility] Value Range Interpretation Code Description Data Joan rce(s) Supporting Document(s) Leukocytes [#/volume] in Blood by Automated count 10.6 10*3/uL 4-10 H [facility] Erythrocytes [#/volume] in Blood by Automated count 4.32 10*6/uL 4.1- 5.3 [facility] Hemoglobin [Mass/volume] in Blood 13.6 g/dL 11.5-15.5 [facility] Hematocrit [Volume Fraction] of Blood by Automated count 39.6 % 3 6-45 [facility] Erythrocyte mean corpuscular volume [Entitic volume] by Auto mated count 91.8 fL 80-96 [facility] Erythrocyte mean corpuscular hemoglobin [Entitic mass] by Automated count 31.6 pg 27-33 [facility] Erythrocyte mean corpuscular hemoglobin concentration [Mass/volume] by Automated count 34.4 g/dL 32.0-36.0 [facility] distribution width [Ratio] by Automated count 13.2 % 11.5-14.5 [facility] Platelets [#/volume] in Blood by Automated count 352 10*3/uL 150-400 [facility] Differential cell count method - Blood [facility] Neutrophils/100 leukocytes in Blood by Automated count 57 % [facility] Lymphocytes/100 leukocytes in Blood by Automated count 34 % [facility] Monocytes/100 leukocytes in Blood by Automated count 7 % [facility] Eosinophils/100 leukocytes in Blood by Automated count 1 % [facility] Basophils/100 leukocytes in Blood by Automated count 1 % [facility] Neutrophils [#/volume] in Blood by Automated count 6.11 10*3/uL 1.8-7 .0 [facility] Lymphocytes [#/volume] in Blood by Automated count 3.60 10*3/uL 1.2-4 .0 [facility] Monocytes [#/volume] in Blood by Automated count 0.69 10*3/uL 0-0.8 [facility] Eosinophils [#/volume] in Blood by Automated count 0.10 10*3/uL 0-0.5 [facility] Basophils [#/volume] in Blood by Automated count 0.06 10*3/uL 0-0.2 [facility] Nucleated erythrocytes/100 leukocytes [Ratio] in Blood by Automated count 0 /100{WBCs} 0-0 [facility] ID Date Data Source [id number] 01/03/2021 09:51:39 PM EDT [facility] Name Value Range Interpretation Code Description Data Joan rce(s) Supporting Document(s) Bicarbonate [Moles/volume] in Serum 18 mmol/L 22-29 L [facility] Chloride [Moles/volume] in Serum or Plasma 101 mmol/L 98-107 [facility] Creatinine [Mass/volume] in Serum or Plasma 0.73 mg/dL 0.50-0.90 [facility] Glucose [Mass/volume] in Serum or Plasma 100 mg/dL 70-140 [facility] Potassium [Moles/volume] in Serum or Plasma 3.5 mmol/L 3.4-5.1 [facility] Sodium [Moles/volume] in Serum or Plasma 133 mmol/L 136-145 L [facility] Urea nitrogen [Mass/volume] in Serum or Plasma 9 mg/dL 6-20 [facility] Anion gap 3 in Serum or Plasma 14 mmol/L 8-15 [facility] Osmolality of Serum or Plasma by calculation 274 mosm/kg 275-300 L [facility] Creatinine/Urea nitrogen [Mass Ratio] in Serum or Plasma 12 [facility] Calcium [Mass/volume] in Serum or Plasma 9.1 mg/dL 8.6-10.0 [facility] Glomerular filtration rate/1.73 sq M pre dicted among non-blacks [Volume Rate/Area] in Serum or Plasma by Creatinine-based formula (MDRD) >6 0 [facility] Glomerular filtration rate/1.73 sq M pre dicted among blacks [Volume Rate/Area] in Serum or Plasma by Creatinine-based formula (MDRD) >60 [facility] ID Date Data Source [id number] 01/03/2021 10:00:[address] [facility] Name Value Range Interpretation Code Description Data Joan rce(s) Supporting Document(s) Choriogonadotropin.beta subunit [Moles/volume] in Serum or P lasma 460 m[IU]/mL <5 H [facility] ID Date Data Source [id number] 01/03/2021 09:54:[address] [facility] Name Value Range Interpretation Code Description Data Joan rce(s) Supporting Document(s) ABO and Rh group [Type] in Blood [facility] Blood group antibody screen [Presence] in Serum or Plasma [facility] Blood bank comment [facility] Procedure Social History Code Duration Value Status Description Data Source(s ) Smoking 01/04/2021 12:00:00 AM EDT Unknown if ever smoked comp leted Unknown if ever smoked [facility] Vital Signs ID Date Data Source [id number] 01/13/2021 04:14:[address] [facility] Name Value Range Interpretation Code Description Data Source(s) WEIGHT RECORDED 140 lb 140 lb [facility] Body height Measured 64 in 64 in [facility]
[2021-03-02] MEDS ORDERED: TRAZ-252 (13:12)
[2021-03-02] MEDS ORDERED: MULTTAB20 PO (13:12)
--- OUTSIDE RECORDS SUMMARY | 2021-03-02 14:02 | CCD ---
Author Author [facility] Organization [facility] Address Unknown Phone Unavailable Care Team Providers Care Mental Health Technician Name Role Phone Edwin PRATT MD Unavailable [...] Guillermo PA Unavailable Unavailable Meng, L Janell STATE FEDERAL RELATIONS DEPUTY DIRECTOR Unavailable Unavailable Meng, L Janell STATE FEDERAL RELATIONS DEPUTY DIRECTOR Unavailable Unavailable Meng, L Janell STATE [employer]ERAL RELATIONS DEPUTY DIRECTOR Unavailable Unavailable Meng, L Janell STATE FEDERAL RELATIONS DEPUTY DIRECTOR Unavailable Unavailable Meng, L Janell STATE FEDERAL RELATIONS DEPUTY DIRECTOR Unavailable Unavailable Meng, L Janell STATE FEDERAL RELATIONS DEPUTY DIRECTOR Unavailable Unavailable Meng, L Janell STATE FEDERAL RELATIONS DEPUTY DIRECTOR Unavailable Unavailable Meng, L Janell STATE FEDERAL RELATIONS DEPUTY DIRECTOR Unavailable Unavailable Meng, L Janell STATE FEDERAL RELATIONS DEPUTY DIRECTOR Unavailable Unavailable Meng, L Janell STATE FEDERAL RELATIONS DEPUTY DIRECTOR Unavailable Unavailable Meng, L Janell STATE FEDERAL RELATIONS DEPUTY DIRECTOR Unavailable Unavailable Meng, L Janell STATE FEDERAL RELATIONS DEPUTY DIRECTOR Unavailable Unavailable Meng, L Janell STATE FEDERAL RELATIONS DEPUTY DIRECTOR Unavailable Unavailable Meng, L Janell STATE FEDERAL RELATIONS DEPUTY DIRECTOR Unavailable Unavailable Meng, L Janell STATE FEDERAL RELATIONS DEPUTY DIRECTOR Unavailable Unavailable Meng, L Janell STATE FEDERAL RELATIONS DEPUTY DIRECTOR Unavailable Unavailable Meng, L Janell STATE FEDERAL RELATIONS DEPUTY DIRECTOR Unavailable Unavailable Meng, L Janell STATE FEDERAL RELATIONS DEPUTY DIRECTOR Unavailable Unavailable Meng, L Janell STATE FEDERAL RELATIONS DEPUTY DIRECTOR Unavailable Unavailable Meng, L Janell STATE FEDERAL RELATIONS DEPUTY DIRECTOR Unavailable Unavailable Meng, L Janell STATE FEDERAL RELATIONS DEPUTY DIRECTOR Unavailable Unavailable Meng, L Janell STATE FEDERAL RELATIONS DEPUTY DIRECTOR Unavailable Unavailable Meng, L Janell STATE FEDERAL RELATIONS DEPUTY DIRECTOR Unavailable Unavailable Meng, L Janell STATE FEDERAL RELATIONS DEPUTY DIRECTOR Unavailable Unavailable Mneg, L Janell STATE FEDERAL RELATIONS DEPUTY DIRECTOR Unavailable Unavailable Meng, L Janell STATE FEDERAL RELATIONS DEPUTY DIRECTOR Unavailable Unavailable Meng, L Janell STATE FEDERAL RELATIONS DEPUTY DIRECTOR Unavailable Unavailable Meng, L Janell STATE FEDERAL RELATIONS DEPUTY DIRECTOR Unavailable Unavailable Meng, L Janell STATE FEDERAL RELATIONS DEPUTY DIRECTOR Unavailable Unavailable Meng, L Janell STATE FEDERAL RELATIONS DEPUTY DIRECTOR Unavailable Unavailable Meng, L Janell STATE FEDERAL RELATIONS DEPUTY DIRECTOR Unavailable Unavailable Meng, L Janell STATE FEDERAL RELATIONS DEPUTY DIRECTOR Unavailable Unavailable Meng, L Janell STATE FEDERAL RELATIONS DEPUTY DIRECTOR Unavailable Unavailable Meng, L Janell STATE FEDERAL RELATIONS DEPUTY DIRECTOR Unavailable Unavailable Meng, L Janell STATE FEDERAL RELATIONS DEPUTY DIRECTOR Unavailable Unavailable Meng, L Janell STATE FEDERAL RELATIONS DEPUTY DIRECTOR Unavailable Unavailable Meng, L Janell STATE FEDERAL RELATIONS DEPUTY DIRECTOR Unavailable Unavailable Meng, L Janell STATE FEDERAL RELATIONS DEPUTY DIRECTOR Unavailable Unavailable Meng, L Janell STATE FEDERAL RELATIONS DEPUTY DIRECTOR Unavailable Unavailable Meng, L Janell STATE FEDERAL RELATIONS DEPUTY DIRECTOR Unavailable Unavailable Meng, L Janell STATE FEDERAL RELATIONS DEPUTY DIRECTOR Unavailable Unavailable Meng, L Janell STATE FEDERAL RELATIONS DEPUTY DIRECTOR Unavailable Unavailable Meng, L Janell STATE FEDERAL RELATIONS DEPUTY DIRECTOR Unavailable Unavailable Meng, L Janell STATE FEDERAL RELATIONS DEPUTY DIRECTOR Unavailable Unavailable Meng, L Janell STATE FEDERAL RELATIONS DEPUTY DIRECTOR Unavailable Unavailable CHANLIECCO, C [place] MD Unavailable [...] is protected by Article 27-F of the [facility] Public Health law. If you continue you may have access to information: Regarding HIV / AIDS; Provided by facilities licensed or operated by the [facility] Office of Mental Health; or Provided by the [facility] Office for People With Developmental Disabilities. If such information is present, then the following [facility] mandated warning applies: This information has been [...] law may result in a fine or snf sentence or both. A general authorization for the release of medical or other information is NOT sufficient authorization for further disc losure. Allergies and Adverse Reactions Type Description Substance Reaction Status Data Source(s ) Propensity to adverse reactions PENICILLINS [facility] Propensity to adverse reactions NSAIDS [facility] Encounters Encounter Providers Location Date Indications Data Source(s ) Outpatient Attender: Guillermo Mcconnell Office 01/08/2021 11:00:00 AM EDT [facility] ([facility] Emergency Attender: [place] JOHN MDConsultant: Mine Meng STATE FEDERAL RELATIONS DEPUTY DIRECTOR 01/05/2021 04:54:00 PM EDT - 01/05/2021 08:32:00 PM EDT [facility] Patient discharged. Emergency Attender: FERNANDO PRATT MDAttender: BAKARI MARQUEZ MD 07A-ERMADULT 01/03/2021 12:00:00 AM EDT - 01/04/2021 01:50:00 AM EDT /abdominal pain/shortness of breath [facility] /abdominal pain/shortness of kallie ath Patient discharged. Medications Medication Brand Name Start Date Product Form Dose Route Admi nistrative Instructions Pharmacy Instructions Status Indications Reaction Description Data Source(s) morphine sulfate (PF) injection 4 mg 0791-5972-66 01/04/2021 12:00: 00 AM EDT 4 mg Intravenous completed 4 mg, In travenous, Once, On 01/04/21 at 0000, For 1 dose [facility] Medication administered onsite sodium chloride 0.9 % bolus 1,000 mL 01/03/2021 11:00: 00 PM EDT 1000 mL Intravenous completed 1,000 mL , Intravenous, Once, On 01/03/21 at 2300, For 1 dose [facility] Medication administered onsite morphine sulfate (PF) injection 2 mg 5926-5161-35 01/03/2021 11:00: 00 PM EDT 2 mg Intravenous completed 2 mg, In travenous, Once, On 01/03/21 at 2300, For 1 dose [facility] Medication administered onsite morphine sulfate (PF) injection 4 mg 8748-4759-69 01/03/2021 09:00: 00 PM EDT 4 mg Intravenous completed 4 mg, In travenous, Once, On Mon01/03/21 at 2100, For 1 dose [facility] Medication administered onsite sodium chloride 0.9 % bolus 1,000 mL 5780-4079-92 01/03/2021 09:00: 00 PM EDT 1000 mL Intravenous completed 1,000 mL , Intravenous, Once, On 01/03/21 at 2100, For 1 dose [facility] Medication administered onsite Insurance Providers Payer name Policy type / Coverage type Policy ID Covered constitution party ID Covered constitution party's relationship to camacho Policy Camacho Plan Information FIGUEROA U [id number] Self [id number] [facility] [id number] [facility] [id number] [facility] - O/P [id number] 01 [id number] [facility] [id number] Problems, Conditions, and Diagnoses Code Display Name Description Problem Type Effective Dates Data Source(s) Z3A01 Less than 8 weeks gestation of Less than 8 weeks gestation of Diagnosis 01/05/2021 04:54:00 PM EDT [facility] O2341 Unspecified infection of urinary tract i n , first trimester Unspecified infection of urinary tract in , first trimester Diagnosis 01/05/2021 04:54:00 PM EDT [facility] O2691 related conditions, unspecifie d, first trimester related conditions, unspecified, first trimester Diagnosis 01/05 04:54:00 PM EDT [facility] /abdominal pain/shortness of kallie ath /abdominal pain/shortness of breath Diagnosis 01/03/2021 07:12:00 PM EDT [facility] Surgeries/Procedures Procedure Description Date Indications Data Source(s) OFFICE OUTPATIENT NEW 20 MINUTES 01/08/2021 12:00:00 A M EDT [facility] ([facility]) ULTRASOUND ABDOMINAL REAL TIME W/IMAGE LIMITED <td>US ABDOMEN LIMITED [id number]</td><td>STAT</td><td>01/04/2021 1:04 AM EDT</td><td> Diagnosis unknown</td><td> </td> 01/04/2021 01:04:32 AM EDT Diagnosis unknown [facility] Diagnosis unknown US PREG UTERUS REAL TIME W/IMAGE DCMTN TRANSVAG <td>US OB TRANSVAGINAL 01083</td><td>Routine</td><td>01/03/2021 10:19 PM EDT</td><td></td><td> </td> 01/03/2021 10:19:05 PM [facility] GONADOTROPIN CHORIONIC QUANTITATIVE <td>POCT ISTAT BHCG</td><td>Routine</td><td>01/03/2021 9:20 PM EDT</td><td></td><td> </td> 01/03/2021 09:20:00 PM [facility] THROMBOPLASTIN TIME PARTIAL PLASMA/WHOLE BLOOD <td>PAR TIAL THROMBOPLASTIN TIME (PTT)</td><td>STAT</td><td>01/03/2021 8:09 PM EDT</td><td></td><td> </td> 01/03/2021 08:09:00 PM [facility] GONADOTROPIN CHORIONIC QUANTITATIVE <td>BETA HCG, QUANT</td><td>STAT</td><td>01/03/2021 8:09 PM EDT</td><td></td><td> </td> 01/03/2021 08:09:00 PM [facility] PROTHROMBIN TIME <td>PROTIME INR</td><td>STAT </td><td>01/03/2021 8:09 PM EDT</td><td></td><td> </td> 01/03/2021 08:09:00 PM [facility] BLOOD COUNT COMPLETE AUTO&AUTO DIFRNTL WBC COUNT <td>C BC AND DIFFERENTIAL</td><td>STAT</td><td>01/03/2021 8:09 PM EDT</td><td></td><td> </td> 01/03/2021 08:09:00 PM [facility] BLOOD TYPING ABO <td>TYPE AND SCREEN</td><td> Routine</td><td>01/03/2021 8:09 PM EDT</td><td></td><td> </td> 01/03/2021 08:09:00 PM EDT [facility] BASIC METABOLIC PANEL CALCIUM TOTAL <td>BASIC METABOLI C PANEL</td><td>STAT</td><td>01/03/2021 8:09 PM EDT</td><td></td><td> </td> 01/03/2021 08:09:00 PM EDT [facility] Results ID Date Data Source [id number] 01/13/2021 04:14:36 PM EDT [facility] Name Value Range Interpretation Code Description Data Joan rce(s) Supporting Document(s) ED Provider Note [facility] [id number] lbm [file] [id number]== ID Date Data Source [id number] 01/05/2021 04:54:00 PM EDT [facility] 1 OrderSheet [facility] Emergency Department [address] [place] [address] Phone #: ext- [phone] 01/05/2021 16:52 Patient: KURT TANNER Sex: F [...] Alvaro Bennett Victoria Jennifer R.N. 2 OrderSheet [facility] Emergency Department [address] [place] [address] Phone #: ext- [phone] 01/05/2021 16:52 Patient: [...] rce(s) Supporting Document(s) ID Date Data Source [id number] 01/05/2021 04:54:00 PM EDT [facility] 1 Medication Reconciliation Report [facility] Emergency Department [address] [place] [address] Phone #: ext- [phone] 01/05/2021 16:52 Patient: [...] Dispense 6 tablet. Refills: 0.Substitution permitted.Pharmacy - [facility] [id number] ; [place] [address]. .Macrobid 100 mg capsule Take 1 capsule twice a day for 7 days -- Dispense 14 capsule. Refills: 0.Substitution permitted.Pharmacy - [facility] [phone] ; [place] [address]. FaxNumber: . -- Virginia John Name Value Range Interpretation Code Description Data Joan rce(s) Supporting Document(s) ID Date Data Source [id number] 01/05/2021 04:54:00 PM EDT [facility] 1 Medication Administration Record [facility] Emergency Department [address] [place] [address] Phone #: ext- [phone] 01/05/2021 16:52 Patient: KURT TANNER Sex: F [...] rce(s) Supporting Document(s) ID Date Data Source [id number] 01/05/2021 04:54:00 PM EDT [facility] 1 General Instructions [facility] Emergency Department [address] [place] [address] Phone #: ext- [phone] 01/05/2021 16:52 Patient: KURT TANNER Sex: F : 1995 Age: 25yAcute suprapubic abdominal pain.First trimester .Acute urinary tract infection with cystitis. No hematuria.INSTRUCTIONSDrink plenty of fluids.(take the macorbid for UTI as well as the pyridium for lower abdominal discomfort. your [facility] hasincreased to 967. follow up with your docotr in 2 days if not better.).Your Current Medications: .No home medication.Prescription Medications:Pyridium 200 mg tablet Take 1 tablet three times a day for 2 days -- Dispense 6 tablet. Refills: 0.Substitution permitted.Pharmacy - [facility] [phone] ; [place] [address]. .Macrobid 100 mg capsule Take 1 capsule twice a day for 7 days -- Dispense 14 capsule. Refills: 0.Substitution permitted.Pharmacy - [facility] [phone] ; [place] [address]. FaxNumber: .Follow-up:Follow up with your healthcare provider in two if not better. Reason for referral: evaluation. Summary ofcare provided to patient via paper. ADDITIONAL INFORMATIONBladder Infection, Female (Adult) 2 General Instructions [facility] Emergency Department [address] [place] [address] Phone #: ext- [phone] 01/05/2021 16:52 Patient: [...] Urgent need to urinate 3 General Instructions [facility] Emergency Department [address] [place] [address] Phone #: ext- [phone] 01/05/2021 16:52 Patient: [...] a diaphragm for controlTreatment 4 General Instructions [facility] Emergency Department [address] [place] [address] Phone #: ext- [phone] 01/05/2021 16:52 Patient: [...] your healthcare provider.Follow-up care 5 General Instructions [facility] Emergency Department [address] [place] [address] Phone #: ext- [phone] 01/05/2021 16:52 Patient: KURT TANNER Sex: F [...] if the results will affect your treatment.Call [phone] if any of the following occur: Trouble [...] swelling in the outer vaginal area (labia) [id number] [employer]. [address] [place] [address]. All rights reserved. This information is not intended as asubstitute for professional medical care. Always follow your healthcare professional's instructions. You have been given the following additional information: Bladder Infection, Female (Adult) 6 General Instructions [facility] Emergency Department [address] [place] [address] Phone #: ext- [phone] 01/05/2021 16:52 Patient: KURT TANNER Sex: F : 1995 Age: 25y(Electronically signed by Virginia John 01/05/2021 21:42) Name Value Range Interpretation Code Description Data Joan rce(s) Supporting Document(s) ID Date Data Source [id number] 01/05/2021 04:54:00 PM EDT [facility] 1 Clinical Report - Nurses [facility] Emergency Department [address] [place] [address] Phone #: ext- [phone] 01/05/2021 16:52 Patient: KURT TANNER [facility]#: [id number] Sex: F : 1995 Age: 25yTRIAGEArrived by private vehicle. Historian: patient.Acuity: LEVEL 3.Chief Complaint: ABDOMINAL PAIN and SPOTTING.Alert. No acute distress.Onset. (2 days ago). ( PT reports Monday she began having sharp LLQ pain on Monday that radiates toher lower back with scant spotting. She had a positive test the week prior. Monday, she went [facility] ER and had a transvaginal ultrasound done and an ultrasound of her appendix. PTreports that she was told she had a lesion on her right ovary and could not rule out an ectopic .She also had free fluid in her RLQ. She called the ob provider in [place] and was told to come to the ERagain because her pain has not improved.).Treatment EMERGENCY SERVICE WORKER:Seen within the last 48 hours at another [...] Lucero R.N. 2 Clinical Report - Nurses [facility] Emergency Department [address] [place] [address] Phone #: ext- [phone] 01/05/2021 16:52 Patient: [...] Bennett R.N. 3 Clinical Report - Nurses [facility] Emergency Department [address] [place] [address] Phone #: ext- [phone] 01/05/2021 16:52 Patient: [...] Bennett R.N. late entry - 18:00 01/05/21. Fish Hatchery Inspector provided for the pelvic exam by the [...] to sonogram by wheelchair with mask and histologic technician. --18:44 01/05/21 Uma Bennett R.N. Patient returned from sonogram by wheelchair with mask and histologic technician. --18:44 01/05/21 Uma Bennett R.N. Reassessment acuity: [...] RR: 17. O2 saturation: 100%. --18:55 01/05/21 [place] vending stand supervisor, Jose, ER Tech1 19:14 01/05/2021 Macrobid (Nitrofurantoin [...] Bennett R.N. 4 Clinical Report - Nurses [facility] Emergency Department [address] [place] [address] Phone #: ext- [phone] 01/05/2021 16:52 Patient: [...] left without discharge instructions. Patient called by abstract clerk and requested paperwork be mailed.). --20:31 [...] rce(s) Supporting Document(s) ID Date Data Source [id number] 01/05/2021 04:54:00 PM EDT [facility] 1 Clinical Report - Physicians/Mid Levels [facility] Emergency Department [address] [place] [address] Phone #: ext- [phone] 01/05/2021 16:52 Patient: [...] use. 2 Clinical Report - Physicians/Mid Levels [facility] Emergency Department [address] [place] [address] Phone #: ext- [phone] 01/05/2021 16:52 Patient: KURT TANNER Sex: F [...] guarding.Back: Normal external inspection. No CVA tenderness.: Fish Hatchery Inspector present (Nurse Uma). Speculum and bimanual exam [...] TO UA CULTURE: (ASHA: 01/05/2021 18:35) ( [facility] 01/05/2021 19:02) Final results Test Result Flag Units (Reference) UA REFLEX TO UA CULTURE URINALYSIS SOURCE R COLOR yellow (NORMAL: Yello CLARITY clear (NORMAL: Clear SPEC GRAVITY 1.015 (1.001 - 1.030 pH 7 (5 - 9) GLUCOSE NORM (NORMAL: Negat BILIRUBIN NEG (NORMAL: Negat 3 Clinical Report - Physicians/Mid Levels [facility] Emergency Department [address] [place] [address] Phone #: ext- [phone] 01/05/2021 16:52 [id number] Sex: F : 1995 Age: 25y KETONE [...] NONEBeta-HCG, Quant Serum: (ASHA: 01/05/2021 18:03) ( [facility] 01/05/2021 18:36) Final results Test Result Flag Units (Reference) HCG QUANT 967.4 mIU/mL Interpretation: Less than 5 mU/mL: Negative6-10 mU/mL: Borderline (suggest repeat in 48 hours) >10: PositiveApprox HCG range (mU/mL) Weeks post LMP 5.4-708 mU/mL 3-4 Qoxbx040-94190 mU/mL 5-6 Weeks 4059-943325 mU/mL 7-8 Usapx70936-721355 mU/mL 9-10 Weeks 37083-19323 mU/mL 12-14 Tkkrv78398-05168 mU/mL 15-16 Weeks 8240-58652 mU/mL 17-18 WeeksCBC w Diff: (ASHA: 01/05/2021 [...] PANEL 4 Clinical Report - Physicians/Mid Levels [facility] Emergency Department [address] [place] [address] Phone #: [phone]- [phone] 01/05/2021 16:52 Patient: KURT TANNER Sex: F [...] not show anyIUP. was seen today at [facility] and had repeat [facility] which doubled up [...] fluid. 5 Clinical Report - Physicians/Mid Levels [facility] Emergency Department [address] [place], [place] [address] Phone #: ext- [phone] 01/05/2021 16:52 Patient: [...] tablet. Refills: 0. Substitution permitted. Pharmacy - [facility] [phone] ; [place] [address]. . Macrobid 100 mg capsule Take 1 capsule twice a day for 7 days -- Dispense 14 capsule. Refills: 0. Substitution permitted. [facility] [address] ; [place] [address]. . Follow-up: Follow up with your healthcare provider in two if not better. Reason for referral: evaluation. Summary of 6 Clinical Report - Physicians/Mid Levels [facility] Emergency Department [address] [place] [address] Phone #: ext- [phone] 01/05/2021 16:52 Patient: KURT TANNER Sex: F : 1995 Age: 25y care provided to patient via paper.(Electronically signed by Virginia John 01/05/2021 21:42) Name Value Range Interpretation Code Description Data Joan rce(s) Supporting Document(s) ID Date Data Source [id number] 01/05/2021 04:54:00 PM EDT [facility] Addenda for KURT TANNER VisitID: [id number] Date: 18:50Lab results reviewed, urine culture sensitivity results show E.Coli 50,000-100,000 cfu/ml sensitive toMacrobid which patient was prescribed.(Electronically signed by Yoly Leblanc RN - 01/10/2021 18:50) Name Value Range Interpretation Code Description Data Joan rce(s) Supporting Document(s) ID Date Data Source [id number] 01/06/2021 08:34:00 [place] [address] PHONE: [phone] FAX: [phone] Name .................. : FLORES HICKS Acct Number.................. : [id number] ROOM. ................. : TR- MR Number ................... : [id number] Stay type ............. : E/R Discharge Date......... ... : 01/05/21 Admit Date ......... : 01/05/21 Admit Phys .................... : ALVARO Date of ....... : 1995 Family Phys ................... : LAKSHMI [employer] Phone .................. : [phone] Age ................................ : 25 Film# .................. .:[id number] Sex ................................. : F Unsigned transcriptions are preliminary reports and do not represent a medical or legal document US OB 1ST TRI W TV IF NEEDED [id number] COMPLETE:01/05/21 19:29 [facility] [id number] Reason(s): right lower abdominal pain 4 weeks [...] rce(s) Supporting Document(s) ID Date Data Source [id number] 01/10/2021 04:37:00 PM EDT [facility] Name Value Range Interpretation Code Description Data Joan rce(s) Supporting Document(s) CULTURE URINE [facility] _CULTURE URINE_$$[id number]$$091039$$344215$$887571$$516645$$837697$$541313$$656890$$613285$$ 662190$$473614$$025232$$703899$$999180$$741076$$326807$$990271$$037111$$821687$$ 451300$$286011$$670421$$089236$$237530$$840970$$220995$$379809 -- Continued on next page --Patient: FLORES BURTONOMI Order: [id number] Page 2Culture: CULTURE URINE Status: Final ==== -- Continued on next page --Patient: FLORES BURTONOMI Order: [id number] Page 2Culture: CULTURE URINE Status: Prelim =====$$[id number]$$[id number] DATE/TIME: 01/10/2021 13:05Culture: CULTURE URINE Status: FinalIsolate [...] coli50,000-100,000 colony forming units per mLUrine Culture,Comprehensive: X4Ziyinnysxfw coli Flag: APatient: FLORES HCIKS Order: [id number] Page 3Culture: CULTURE URINE Status: Final ====ISOLATE [...] S S . . . . . .69477-6Gepituhxxy S S . . . . . .267-5Imipenem S S . . . . . .279-0Levofloxacin S S . . . . . .04372-1Cczgekjvc S S . . . . . .6652-2Nitrofurantoin S S . . . . . .363- 2Piperacillin/Tazobactam S S . . . . . .412-7Tetracycline R R . . . . . .496-0Tobramycin S S . . . . . .508-2Trimethoprim/Sulfa S S . . . . . .516-5P1 Test performed by: [facility] #: [id number] [address] [facility] [id number] [facility] [id number] Director : Bradford Shaffer MD NPI #:Pedodontist : 01/08/21.0925.XMT.SENT REF 01/10/21.1637.XMT.SENT REF ID Date Data Source [id number] 01/05/2021 07:01:00 PM EDT [facility] Name Value Range Interpretation Code Description Data Joan rce(s) Supporting Document(s) UA REFLEX TO UA CULTURE [facility] URINALYSIS SOURCE R [facility] COLOR yellow NORMAL: Yellow [facility] CLARITY clear NORMAL: Clear [facility] Specific gravity of Urine by Test strip 1.015 1.001 - 1.030 [facility] 7 5 - [facility] Gl[facility] [Mass/volume] in Urine by Test strip NORM NORMAL: Negat [facility] Bilirubin.total [Presence] in Urine by Test strip NEG NORMAL: Negative [facility] Ketones [Presence] in Urine by Test strip NEG NORMAL: Negative [facility] Protein [Mass/volume] in Urine by Test strip NEG NORMAL: Negat [facility] Nitrite [Presence] in Urine by Test strip NEG NORMAL: Negative [facility] BLOOD NEG NORMAL: Negative [facility] Leukocyte esterase [Presence] in Urine by Test strip 25 ABI L: Negative [facility] Urobilinogen [Mass/volume] in Urine by Test strip NOR less murray n 1.0 mg/dL [facility] MICROSCOPIC See Below [facility] WBC 20 - 30 NORMAL: NONE SEEN A [facility] Erythrocytes [#/volume] in Urine by Test strip 0 - 1 NORMAL: NON E SEEN [facility] EPITHELIAL MANY NORMAL: NONE SEEN A [facility] Bacteria [Presence] in Urine sediment by Light microscopy 3+ LARGE NORMAL: NONE SEEN A [facility] ID Date Data Source [id number] 01/05/2021 06:36:00 PM EDT [facility] Name Value Range Interpretation Code Description Data Joan rce(s) Supporting Document(s) Choriogonadotropin.intact [Units/volume] in Serum or Plasma 967.4 mIU /mL [facility] Interpr etation: Less than 5 mU/mL: Negative 6-10 mU/mL: Borderline (suggest repeat in 48 hours) >10: Positive Approx HCG range (mU/mL) Weeks post LMP 5.4-708 mU/mL 3-4 Weeks 217-89069 mU/mL 5-6 Weeks 4059-170592 mU/mL 7-8 Weeks 38105-082609 mU/mL 9-10 Weeks 72319-08568 mU/mL 12-14 Weeks 13493-87052 mU/mL 15-16 Weeks 8240- 56009 mU/mL 17-18 Weeks ID Date Data Source [id number] 01/05/2021 06:35:00 PM EDT [facility] Name Value Range Interpretation Code Description Data Joan rce(s) Supporting Document(s) COMPREHENSIVE METABOLIC PANEL [facility] COMPREHENSIVE METABOLIC PANEL Sodium [Moles/volume] in Serum or Plasma 137 mEq/L 134 - 153 [facility] Potassium [Moles/volume] in Serum or Plasma 3.7 mEq/L 3.6 - 5.0 [facility] Chloride [Moles/volume] in Serum or Plasma 101 mEq/L 98 - 107 [facility] Carbon dioxide, total [Moles/volume] in Serum or Plasma 23 MEQ/L 22 - 30 [facility] Glucose [Mass/volume] in Serum or Plasma 98 MG/DL 70 - 99 [facility] BUN 9 MG/DL 7 - [facility] Creatinine [Mass/volume] in Serum or Plasma 0.6 MG/DL 0.7 - 1.5 L [facility] BUN/CREAT 15 8 - 27 [facility] Protein [Mass/volume] in Serum or Plasma 6.8 G/DL 6.3 - 8.2 [facility] Albumin [Mass/volume] in Serum or Plasma 4.5 G/DL 3.9 - 5.0 [facility] Globulin [Mass/volume] in Serum by calculation 2.3 GM/DL 2.4 - 3.2 L [facility] A/G RATIO 2.0 0.8 - 2.0 [facility] Calcium [Mass/volume] in Serum or Plasma 9.4 MG/DL 8.4 - 10.2 [facility] Bilirubin.total [Mass/volume] in Serum or Plasma <0.7 MG/DL 0.2 - 1.3 [facility] Alkaline phosphatase [Enzymatic activity/volume] in Serum or Plasma 68 U/L 38 - 126 [facility] Aspartate aminotransferase [Enzymatic activity/volume] in Serum or Plasma 14 U/L 5 - 40 [facility] Alanine aminotransferase [Enzymatic activity/volume] in Seru m or Plasma 10 U/L 7 - 56 [facility] Anion gap 3 in Serum or Plasma 13.0 mmol/L 8.0 - 16.0 [facility] AGE 25 yrs [facility] NON-AA GFR >60 mL/min [facility] ital AFR AMER GFR >60 mL/min [facility] Male GFR In terprentation 20-49 [...] >32 mL/min Normal ID Date Data Source [id number] 01/05/2021 06:12:00 PM EDT [facility] Name Value Range Interpretation Code Description Data Joan rce(s) Supporting Document(s) CBC W/AUTOMATED DIFF [facility] COMPLETE BLOOD COUNT Leukocytes [#/volume] in Blood by Automated count 8.5 10^3/uL 4.2 - 1 1.0 [facility] Erythrocytes [#/volume] in Blood by Automated count 4.25 10^6/uL 4. 20 - 5.40 [facility] Hemoglobin [Mass/volume] in Blood 13.2 g/dL 12.0 - 16.0 [facility] Hematocrit [Volume Fraction] of Blood by Automated count 38.6 % 3 7.0 - 47.0 [facility] Erythrocyte mean corpuscular volume [Entitic volume] by Auto mated count 90.8 fL 81.0 - 101 [facility] Erythrocyte mean corpuscular hemoglobin [Entitic mass] by Automated count 31.1 pg 27.0 - 34.0 [facility] Erythrocyte mean corpuscular hemoglobin concentration [Mass/volume] by Automated count 34.2 g/dL 31.0 - 36.0 [facility] Erythrocyte distribution width [Ratio] by Automated count 12.0 % 11.5 - 14.5 [facility] Platelets [#/volume] in Blood by Automated count 361 10^3/uL 150 - 45 0 [facility] Platelet mean volume [Entitic volume] in Blood by Automated count 8.9 fL 7.4 - 10.4 [facility] Neutrophils/100 leukocytes in Blood by Automated count 54.5 % 37. 0 - 80.0 [facility] Lymphocytes/100 leukocytes in Blood by Manual count 35.1 % 25.0 - 40.0 [facility] Monocytes/100 leukocytes in Blood by Automated count 7.4 % 3.0 - 8.0 [facility] Eosinophils/100 leukocytes in Blood by Automated count 1.9 % 0.0 - 7.0 [facility] Basophils/100 leukocytes in Blood by Automated count 0.9 % 0.0 - 2.5 [facility] %IG 0.2 % 0.0 - 0.0 [facility] %NRBC 0.0 % 0.0 - 0.0 [facility] Neutrophils [#/volume] in Blood by Automated count 4.60 10^3/uL 2.00 - 6.90 [facility] Lymphocytes [#/volume] in Blood by Automated count 2.97 10^3/uL 0.60 - 3.40 [facility] Monocytes [#/volume] in Blood by Automated count 0.63 10^3/uL 0.00 - 0.90 [facility] Eosinophils [#/volume] in Blood by Automated count 0.16 10^3/uL 0.00 - 0.70 [facility] Basophils [#/volume] in Blood by Automated count 0.08 10^3/uL 0.00 - 0.20 [facility] #IG 0.02 10^3/uL 0.00 - 0.10 [facility] #NRBC 0.00 10^3/uL 0.00 - 0.00 [facility] MANUAL DIFF NOT INDICATED [facility] RBC MORPH NOT INDICATED [facility] ID Date Data Source [id number] 01/04/2021 09:35:19 AM EDT [facility] Name Value Range Interpretation Code Description Data Joan rce(s) Supporting Document(s) ED Provider Note [facility] OQNHLh1jIyRBGrEo99/IMGvyYVFki3GxMHnfKGw0KPhvHOGoU5IxPTH2oF5pUSG0XJpIDmMcCzVkDATg lbm [file] LndPvtBVDZJJWjjSEjMGPQz9RsjcPnbTAOTOTqQDU1 RAUwIPWyzTamRh3xLHRdNE9gYS7hHRPnCAF7RiS5FGRYHK9WKGQhKVOkqEQbIOO9WQDuAiMgPFeiXNZi GIZ0PX26mKljQH3DNBEpLEKpUC29ZIA8AOWcGh4KDOWoPGInmmY3UtQtOIMOFc2+DQplbmRvYmoNCjU0 SYCbm4SdWUq8IX7WELPcINfjIN1LHLDjgL0eGUmxAE 7AJvT4IETsWAFSAkPqY64tqOVhAEj1R2RxAySnNGSvHoluTYAnJOhzAxDkGSShKmJzSBbfCM2+ID4+DQ wpHM6IZQayvwTzSAPpQj9FVBKrXGDdEX9jVIJuZJZhK1L5vAjgQWIMRkFcJ8ansedsGR0uMUJwQ792lD psmhReYKY0QDMaZq5LCQGfTMJ5XOVrgVHtQVOzYYGD DCliEW8PhFGuQLO4sP3mWLxiRSPxLUTkO2vKKkPzhHfvZB51lJcuakFczMJwIMq+Ur3IMG5ly3ZbRXm6 aaWyKLaoGGS0FQtjZIWtXUGeTMVmYAP2UZQ3HKXMWpPeCWZgLOZfYYdaXCPlNVFseq0BEQQjVDA4XZBh QIPoKVAsCQDfQKvaXVXwLAM7Qmv1ECTcFAWmZS2OUi MrBYDbXGUlZVauVELaOBAjzh3UOROkANZxRrrpVDYgTRGvSCHpOFvuCQStPQAoJUKtALRrJGUaMW8NNy GbSHEyAJNaHjbuZOEyMQKosb6ZJHMnSAHlJBX1ZqWqARNmGAUhIPepHHUxWCS8SSK5EPTqRJKhLC6AJg MkCADsNXlxHokoELFcOQQirm8GFLGkMBGnBog6INUp WCRfJTDrOThaIPKpFCRuRXDvTCLfSEReSU7OFmOtSDUlKOV9KUDzFMBeBREeeq0UUFFsWKMtAzFyYtXl YNNbSSFkLKtqAUNnQWI8UdC3JFWoRIWsGJ7FPxTfLOXrWYr5EeYyRKQbTLYfeh2VNMBzNQMqYWLlWQUa LTZrUEEdATvnAOXyLFJhSMU2QMRoNKXzPS1OUuZgWH TzTuN8YGBhOXLgDCToay3MMTShWWSsSPE6RTYoPOQrHLFuKOvqYKHcBNQ3CnerNALhILOiWU2CFtNmTJ TsJyx6EflbGTFgYYCjra3VWBZeWRLlJGc4AbTjTKNjOOHhKRcaKYPeGFUuZATpYGPsQSQiLE5SQlXyWH ZlZdT5VMwnUZDpDSYrhe3MMELpANVlSWObQLCpBYYz LYYjOKjyPWVcWPP3DnJ9VMZuNODuIS3RPrFyVOEfMeq5OuTnKRDqHZSvvj6LHTIrYBPiIWo5EEQuYERm YYZqWRejXGYrSTS8XXr2XFEiRGFgRO6SDwFfFSMlBkqjGqQpJOZsWMFvic7FWFXjWOO8WAOtUSGvDYQb VOLiDLhaKKWnFFSmXHBgRPEcQZEyLU7KXqKyXXSrPP A9GIyeOWQbFXKqqv0LFENmECX2GQa5BTFyQWGeQWRvJHgaWXMoRKRrGoGcXMJvJWMcNE0GSeTiEJBxVO L9ChImOFAeUICjra9QMMKiNLQ4Afv9ZWAaGEAvVGSwWKvbNWTdOATlOES4KZWiFNVyZY8WHeMcTBIhHE H0TNQnWWJaVUGqaq7UOIQkOXH9YQWoIMAoTNVnOECy IUvhQCBsDXU2KtP4BBXgQYYsPW0NRiBvOVLjJKTwOpAwSXVfOYNisj7YFZRuRRX2PMW3NITdXCPySOUc VHjbHVGbRAJ3DIMvJNBeZYGvVA4XQqKuMLEbQFZ4AUSnWBQlLAImvk0UWVElQCO5XvG2ODJpOXVvGTTi VWlzEKAaCWO2TYLfOMAnVTLrHO9PYzAoMFCkRFn6RM VwAPCnBGZtno0MCDBuVCB5Vdh4QsYeGOCiHJIiREnmCFZjUFO7BGg8CWXyATXvMS9VVaBqPTXcEXrfBD IsJZMlCBCerw5MWPMwBNE4ROFlVJCkGOJrZERhZWpaEVDyQIP0VZy9SADmVJGyMD9ZWsTmBFfgQEGCTz j6TNlyA7u7ZWT2MW0CI5Jtd9GqJWHdDQSGAGsyEB0p bhKgYNAqTj2HR5pRPzvvGrm5PPA9MJKnAyRtAHT8AGU1OSohEwR6MTcoLuDgXd5kWCEcMmfdCtA9PkJ2 UFGmWhZ8BVh1LQUwVzl7LUOsPETbLfWhKQ4FTu5QPwA5WBJ6dICzPa3UYIl6FYRYGdErNV3MZZa= ID Date Data Source [id number] 01/04/2021 06:32:48 AM EDT [facility] Name Value Range Interpretation Code Description Data Joan rce(s) Supporting Document(s) Consultation [facility] HJOEFo9jKxOPPmMr92/NCUngOIBix3TbTQkcODa8GFvwPYNfM7NeQVV5aQ8gGXQ8ULnVXgHzXaZfQKWj lbm [file] ICAgICAgICAgICAgICAgICAgICAgICAgICAgICAgIC AgICAgICAgICAgICAgICAgICAgICAgICAgICAgICAgICAgICAgICAgDQogICAgICAgICAgICAgICAgIC AgICAgICAgICAgICAgICAgICAgICAgICAgICAgICAgICAgICAgICAgICAgICAgICAgICAgICAgICAgIC AgICAgICAgICAgICAgICAgICAgICAgDQogICAgICAg ICAgICAgICAgICAgICAgICAgICAgICAgICAgICAgICAgICAgICAgICAgICAgICAgICAgICAgICAgICAg ICAgICAgICAgICAgICAgICAgICAgICAgICAgICAgICAgDQogICAgICAgICAgICAgICAgICAgICAgICAg ICAgICAgICAgICAgICAgICAgICAgICAgICAgICAgIC AgICAgICAgICAgICAgICAgICAgICAgICAgICAgICAgICAgICAgICAgICAgDQogICAgICAgICAgICAgIC AgICAgICAgICAgICAgICAgICAgICAgICAgICAgICAgICAgICAgICAgICAgICAgICAgICAgICAgICAgIC AgICAgICAgICAgICAgICAgICAgICAgICAgDQogICAg ICAgICAgICAgICAgICAgICAgICAgICAgICAgICAgICAgICAgICAgICAgICAgICAgICAgICAgICAgICAg ICAgICAgICAgICAgICAgICAgICAgICAgICAgICAgICAgICAgDQogICAgICAgICAgICAgICAgICAgICAg ICAgICAgICAgICAgICAgICAgICAgICAgICAgICAgIC AgICAgICAgICAgICAgICAgICAgICAgICAgICAgICAgICAgICAgICAgICAgICAgDQogICAgICAgICAgIC AgICAgICAgICAgICAgICAgICAgICAgICAgICAgICAgICAgICAgICAgICAgICAgICAgICAgICAgICAgIC AgICAgICAgICAgICAgICAgICAgICAgICAgICAgDQog ICAgICAgICAgICAgICAgICAgICAgICAgICAgICAgICAgICAgICAgICAgICAgICAgICAgICAgICAgICAg ICAgICAgICAgICAgICAgICAgICAgICAgICAgICAgICAgICAgICAgDQogICAgICAgICAgICAgICAgICAg ICAgICAgICAgICAgICAgICAgICAgICAgICAgICAgIC EeYLOhRBYnCOWgPZZzCEEnXQZzSYUiAUXlRNZfFXJeFVSvECVhCLGfLGAxJTDqMAKrBFd9Z2xwDNXdDP QwXO1aRWf5Qf4+JCiCJoZqXER8ngIwuE9VHO3ut1LkPBnmXCUrh8XuCXi6ES6WMKEsPOmjGM4EDVggib 4DVXRuPMLfcALYn2ofVxYhLQK1KQSlKwsrIS7AKCHh P4ovtkJqNGAfIMLMHDedTEGWYCtuKVVDZO5XHzWyG2VoiC55QIOYBd1+LNaueaYsPpzJHnR9ZARix3Yz FXv5GW8TRKImIwrbm8ZcZxhuHNCTMXbhCY9TXRR7EOR1PFBmVw7SZJDzG725jdWmGF8UGf3DPhLnLT1e qk9RJtbsJSWmDpsHVul6OYeyEU7IlRErZZpDw15lyF j3jfIqnHHFtQSipV8RzIZoVPLxNUXrvdtlQPIxRZNyKB0aBL0sHVBsPIRtEcEbBSRUIS3VUYQbYFQxsM WyXPDuEZBEXC7BZQxmZRS4UWNuxkGtlZShERofWH4AEIWybfJkTfYsLVAMLAr+Gw9KNU8iz3VgGQxoRM BvGT9wfl4IUYhZRlKaH1V5lMKzM5O9FQqnUv7VTQDr EUDkGcLuBCCNUWgxWH0ITD1gonK2TZ1IgCOvTUTyWAOdtTEaSRq6Z51zrJFfWVvaJU6XLVH+Clay+Pg0K ZDSyMRAfSETdDvDiWEADExYnY9QwG1GTc7RhS7AwVP68qQsnsvWjSPpwUR6CYV6xWUCkYAYYSO8FpGHv zE6vhrDfIsMtCZCSVvHvM38glIJdYXUmLNH8TYToYu 7EEUAkY9VvchTukSpcrmUoGXNjMWDOMC1CXIwicuHdeFZoeYtvDI35tCfsDO1KWc0ZSxUxQE3mgy8KsX HmSc3JTQHjHK2ZEZNaXUIvPPFiIQP6KENpWnCoUXclQNUiUFPoSGG0POTpDVJoZV9NEcHtYCTrAtQjQB FgWRQhPTWypc4GNZWcCGPwXCWyBKCeMHTjKGVfKOvp TPUoOSHtWDF7PHWcMNNlOU4FZgAmQEPuBLH4OypbNHRnXMRpxq9VPHKiBUKiWck7UUCxDFWaZYPvXBdu MWSwEGN7PiR3LXDxTBRiWH4FXcJcEXXrUOC8AVWyNOVtLYVvfp1TZJPiPGPbTKjfKXIoPDYlRCHlNUhv MMEwEQUxYZX0YWLhGUSuRF2JWxLdEAOhDTB5WJznXN CqSEGxbv7LBIUxSDPeXJR2KXOoVUSkUJYkKUsiHOMlCMFoRdh0OIQiDBLdRQ0JJbMpPFCkZQIgQjuqLB QeTOAkiy8QKUVsPHGlZaYpYSRaZMSbQOQdUAgmYDRzZQOxDbC4JGCjQMCnHW1PElWmYBVjVWY8MGpxDB InZLFdlv3QFSHfWRNwBdb2AYZcCDXjBPNvQFiaNEJw JHE1EMO7KLVwRNKuAJ1WOyLcJPQbOfB3UNOnPRVcSDZhrn2AWTUuUERiSLy1TKPzJNEoEPDnBRyjUFIi ZTE0DJb5KZAwUPAtNL8MIgOcZRAkTeBeJZjeRAHxWQFuom2ZRJCyWIPrAhT4NOQcPXBkGPXjFIxyVSQm GKT6JhnyPSWsNXSnNB7VTaBhKFFvJrylAqHjMCKvER Vkmj1PBLJpGUEgOEQcVuKzGDRtNAOvYSvdCSXkBKA2HXO6VRVwRFGpEX9WPyZhOEpqLSQHTtn9PEwrB7 v3LXNyXT7FE8Vzi7FaKflqABRSFZclKE0kzeIkTXChRg1TS4aMBkm5PGAzVoS9Z5ThVMXqUtK1TbOhOO GgKuV9ETCqQcKqZU2rOWgwWFQ9SUseLmSvYxHcILJz WMNhI5DcCDL7RWU1MNJyTkNsUN0VYy0THhN5OUD6hYPdFm5FBym4THJLTiYrMG6TEBn= ID Date Data Source [id number] 01/04/2021 01:06:47 AM EDT [facility] US ABDOMEN LIMITED [id number] RESULTInte rpreted by:CHERI Campbell INFORMATION: Exam: US Abdomen, Limited; Appendix Exam date and time: 01/04/2021 12:18 AM Age: 25 years old Clinical indication: with inconclusive viability, not applicable or unspecified; Illness, unspecified; Abdominal pain; Generalized; ; Additional info: Rlq, eval for appendicitis TECHNIQUE: Imaging protocol: US abdomen. Real time ultrasound with image documentation. Limited exam focused on the appendix. COMPARISON: US OB TRANSVAGINAL [id number] 01/03/2021 9:56 PM FINDINGS: Appendix: The appendix [...] rce(s) Supporting Document(s) ID Date Data Source [id number] 01/03/2021 11:08:47 PM EDT [facility] US OB TRANSVAGINAL [id number] RESULTInte rpreted by:CHERI Campbell INFORMATION: Exam: US [...] rce(s) Supporting Document(s) ID Date Data Source [id number] 01/03/2021 09:36:16 PM EDT [facility] Name Value Range Interpretation Code Description Data Joan rce(s) Supporting Document(s) Choriogonadotropin.beta subunit free [Units/volume] in Serum or Plasma 381 [IU]/L <5 H [facility] (NOTE)Levels between 5 and 25 [IU]/L may indicate earlypregnancy and should be repeated after 48 hours. ID Date Data Source [id number] 01/03/2021 09:39:57 PM [facility] Name Value Range Interpretation Code Description Data Joan rce(s) Supporting Document(s) aPTT in Platelet poor plasma by Coagulation assay 27.6 s 24.0-33. 0 [facility] ID Date Data Source [id number] 01/03/2021 09:39:57 PM [facility] Name Value Range Interpretation Code Description Data Joan rce(s) Supporting Document(s) Prothrombin time (PT) 13.1 s 11.6-14.0 [facility] INR in Platelet poor plasma by Coagulation assay 1.03 [facility] Routine intensity oral anticoagulation I NR is typically 2.0-3.0. Target INR must be clinically individualized. ID Date Data Source [id number] 01/03/2021 09:43:35 PM [facility] Value Range Interpretation Code Description Data Joan rce(s) Supporting Document(s) Leukocytes [#/volume] in Blood by Automated count 10.6 10*3/uL 4-10 H [facility] Erythrocytes [#/volume] in Blood by Automated count 4.32 10*6/uL 4.1- 5.3 [facility] Hemoglobin [Mass/volume] in Blood 13.6 g/dL 11.5-15.5 [facility] Hematocrit [Volume Fraction] of Blood by Automated count 39.6 % 3 6-45 [facility] Erythrocyte mean corpuscular volume [Entitic volume] by Auto mated count 91.8 fL 80-96 [facility] Erythrocyte mean corpuscular hemoglobin [Entitic mass] by Automated count 31.6 pg 27-33 [facility] Erythrocyte mean corpuscular hemoglobin concentration [Mass/volume] by Automated count 34.4 g/dL 32.0-36.0 [facility] distribution width [Ratio] by Automated count 13.2 % 11.5-14.5 [facility] Platelets [#/volume] in Blood by Automated count 352 10*3/uL 150-400 [facility] Differential cell count method - Blood [facility] Neutrophils/100 leukocytes in Blood by Automated count 57 % [facility] Lymphocytes/100 leukocytes in Blood by Automated count 34 % [facility] Monocytes/100 leukocytes in Blood by Automated count 7 % [facility] Eosinophils/100 leukocytes in Blood by Automated count 1 % [facility] Basophils/100 leukocytes in Blood by Automated count 1 % [facility] Neutrophils [#/volume] in Blood by Automated count 6.11 10*3/uL 1.8-7 .0 [facility] Lymphocytes [#/volume] in Blood by Automated count 3.60 10*3/uL 1.2-4 .0 [facility] Monocytes [#/volume] in Blood by Automated count 0.69 10*3/uL 0-0.8 [facility] Eosinophils [#/volume] in Blood by Automated count 0.10 10*3/uL 0-0.5 [facility] Basophils [#/volume] in Blood by Automated count 0.06 10*3/uL 0-0.2 [facility] Nucleated erythrocytes/100 leukocytes [Ratio] in Blood by Automated count 0 /100{WBCs} 0-0 [facility] ID Date Data Source [id number] 01/03/2021 09:51:39 PM EDT [facility] Name Value Range Interpretation Code Description Data Joan rce(s) Supporting Document(s) Bicarbonate [Moles/volume] in Serum 18 mmol/L 22-29 L [facility] Chloride [Moles/volume] in Serum or Plasma 101 mmol/L 98-107 [facility] Creatinine [Mass/volume] in Serum or Plasma 0.73 mg/dL 0.50-0.90 [facility] Glucose [Mass/volume] in Serum or Plasma 100 mg/dL 70-140 [facility] Potassium [Moles/volume] in Serum or Plasma 3.5 mmol/L 3.4-5.1 [facility] Sodium [Moles/volume] in Serum or Plasma 133 mmol/L 136-145 L [facility] Urea nitrogen [Mass/volume] in Serum or Plasma 9 mg/dL 6-20 [facility] Anion gap 3 in Serum or Plasma 14 mmol/L 8-15 [facility] Osmolality of Serum or Plasma by calculation 274 mosm/kg 275-300 L [facility] Creatinine/Urea nitrogen [Mass Ratio] in Serum or Plasma 12 [facility] Calcium [Mass/volume] in Serum or Plasma 9.1 mg/dL 8.6-10.0 [facility] Glomerular filtration rate/1.73 sq M pre dicted among non-blacks [Volume Rate/Area] in Serum or Plasma by Creatinine-based formula (MDRD) >6 0 [facility] Glomerular filtration rate/1.73 sq M pre dicted among blacks [Volume Rate/Area] in Serum or Plasma by Creatinine-based formula (MDRD) >60 [facility] ID Date Data Source [id number] 01/03/2021 10:00:49 PM EDT [facility] Name Value Range Interpretation Code Description Data Joan rce(s) Supporting Document(s) Choriogonadotropin.beta subunit [Moles/volume] in Serum or P lasma 460 m[IU]/mL <5 H [facility] ID Date Data Source [id number] 01/03/2021 09:54:48 PM EDT [facility] Name Value Range Interpretation Code Description Data Joan rce(s) Supporting Document(s) ABO and Rh group [Type] in Blood [facility] Blood group antibody screen [Presence] in Serum or Plasma [facility] Blood bank comment [facility] Procedure Social History Code Duration Value Status Description Data Source(s ) Smoking 01/04/2021 12:00:00 AM EDT Unknown if ever smoked comp leted Unknown if ever smoked [facility] Vital Signs ID Date Data Source [id number] 01/13/2021 04:14:36 PM EDT [facility] Name Value Range Interpretation Code Description Data Source(s) WEIGHT RECORDED 140 lb 140 lb [facility] Body height Measured 64 in 64 in [facility]
--- NOTE | 2021-03-02 14:33 | REP ---
INDICATION: SOB COMPARISON: None. TECHNIQUE: Portable AP view of the chest FINDINGS: The mediastinum and cardiac silhouette are within normal limits for portable technique. The lung michelle are clear without acute consolidation, effusion, or pneumothorax. Skeletal structures are intact. IMPRESSION: No acute cardiopulmonary process appreciated. <Electronically signed by Mark Mares > 03/02/21 [id number]
[2021-03-02 15:57] VITALS: BP 110/65
== END 2021-03-02 15:58 | disposition home or self-care (01) ==
LOC: M ED 12:33
DX: O98.511 Other viral diseases complicating pregnancy, first trimester (principal); Z20.89 Contact with and (suspected) exposure to other communicable diseases; Z3A.13 13 weeks gestation of pregnancy; Z88.6 Allergy status to analgesic agent; Z88.0 Allergy status to penicillin

== ENCOUNTER 2021-06-30 21:52 | Outpatient (CLI) | payer OTHER ==
[~2021-06-30] VITALS: Ht 162.6 cm; Wt 74.8 kg
[~2021-06-30 21:52] MED LIST: MULTTAB20 PO; TRAZ-252
[2021-06-30 22:12] VITALS: BP 111/67
[2021-06-30 23:38] VITALS: BP 114/68
== END 2021-06-30 23:40 | disposition home or self-care (01) ==
LOC: M LDO 21:52
PROVIDERS: ATTEND Obstetrics & Gynecology
DX: O47.03 False labor before 37 completed weeks of gestation, third trimester (principal); Z3A.29 29 weeks gestation of pregnancy
CPT/HCPCS: 59025; 76815; 81001; 87086; G0378; G0463

== ENCOUNTER 2021-09-06 15:24 | Outpatient (CLI) | payer OTHER ==
[~2021-09-06] VITALS: Ht 162.6 cm; Wt 77.1 kg
[2021-09-06 15:47] VITALS: BP 101/58
[2021-09-06] MEDS ORDERED: HOME MED LIST COMPLETE! XX SCH (15:50)
[2021-09-06] MEDS ORDERED: UNIS25TA3 PO (15:50)
== END 2021-09-06 17:30 | disposition home or self-care (01) ==
LOC: M LDO 15:24
PROVIDERS: ATTEND Obstetrics & Gynecology
DX: O47.1 False labor at or after 37 completed weeks of gestation (principal); Z3A.39 39 weeks gestation of pregnancy; Z88.0 Allergy status to penicillin; Z88.8 Allergy status to other drugs, medicaments and biological substances
CPT/HCPCS: 59025; G0463

== ENCOUNTER 2021-09-07 06:40 | Inpatient (IN) | payer OTHER ==
[~2021-09-07] VITALS: Ht 162.6 cm; Wt 77.1 kg
[~2021-09-07 06:40] MED LIST changes: +UNIS25TA3 PO
[2021-09-07 06:59] VITALS: BP 137/84
[2021-09-07] MEDS ORDERED: OXYTOCIN DRIP 30 UNITS in IV 1 EA IV PRN (07:10)
[2021-09-07] MEDS ORDERED: LACTATED RINGER'S 1000 ML IV STA (07:10)
[2021-09-07] MEDS ORDERED: LIDOCAINE 1% MDV 20ML VIAL INFIL PRN (07:10)
[2021-09-07] MEDS ORDERED: LR 1,000 ML IV SCH (07:10)
[2021-09-07] MEDS ORDERED: TRANEXAMIC ACID INJection 1,000 MG in NS 100 ML IV PRN (07:10)
[2021-09-07] MEDS ORDERED: METHYLERGONOVINE MALEATE 0.2 MG/ML VIAL (J2210) IM PRN (07:10)
[2021-09-07] MEDS ORDERED: OXYTOCIN 30 UNITS IN 0.9% NaCl 500ML IV BAG (J2590) As Ordered ONE (07:18)
[2021-09-07] MEDS ORDERED: diphenhydrAMINE 50MG/ML VIAL (J1200) IV PRN (07:30)
[2021-09-07] MEDS ORDERED: FENTANYL/ROPIVACAINE/NACL BAG 100 ML EPIDURAL SCH (07:30)
[2021-09-07] MEDS ORDERED: NALOXONE INJ 0.4MG/1ML VIAL (J2310 PER 1MG) IV PRN (07:30)
[2021-09-07] MEDS ORDERED: EPIDURAL/PCA KEYS XX PRN (07:30)
[2021-09-07] MEDS ORDERED: ePHEDrine INJ 50 MG/ML VIAL IVP PRN (07:30)
[2021-09-07] MEDS ORDERED: ONDANSETRON 4MG/2ML VIAL IV PRN (07:30)
[2021-09-07] MEDS ORDERED: LR 500 ML IV PRN (07:30)
[2021-09-07 07:35] LABS: HEMATOCRIT 38.5 % (36.0-47.0); HEMOGLOBIN 13.2 g/dl (12.0-15.5); MEAN CORPUSCULAR HEMOGLOBIN 30.9 pg (27.0-33.0); MEAN CORPUSCULAR HGB CONC 34.3 g/dl (32.0-36.5); MEAN CORPUSCULAR VOLUME 90.2 fl (80.0-96.0); PLATELET COUNT, AUTOMATED 318 10^3/uL (150-450); RED BLOOD COUNT 4.27 10^6/uL (4.00-5.40); WHITE BLOOD COUNT 10.4 10^3/uL (4.0-10.0)
[2021-09-07 08:45] LABS: CORD GAS ABE V -2.2; CORD GAS HCO3 V 22.3 MEQ/L; CORD GAS O2 SAT V 75.2 %; CORD GAS PCO2 V 37.6 mmHg; CORD GAS PH V 7.391 UNITS; CORD GAS PO2 V 32.7 mmHg; CORD GAS SBC V 22.1 MEQ/L; CORD GAS TCO2 V 23.5 MEQ/L
[2021-09-07] MEDS ORDERED: ACETAMINOPHEN TAB 650MG DOSE (2X325MG) PO PRN (08:45)
[2021-09-07] MEDS ORDERED: ACETAMINOPHEN 500 MG TAB PO PRN (08:45)
[2021-09-07] MEDS ORDERED: DOCUSATE SODIUM 100MG CAPSULE PO PRN (08:45)
[2021-09-07] MEDS ORDERED: OXYTOCIN DRIP 30 UNITS in IV 1 EA IV SCH (08:45)
[2021-09-07] MEDS ORDERED: METHYLERGONOVINE MALEATE 0.2 MG TAB PO PRN (08:45)
[2021-09-07] MEDS ORDERED: DIBUCAINE 1% OINTMENT 30GM TOP PRN (08:45)
[2021-09-07 11:31] VITALS: BP 111/62
[2021-09-07 12:30] VITALS: BP 111/62
[2021-09-07] MEDS: PRENATAL VITAMINS CHEWABLE TABLET PO SCH (12:31)
[2021-09-07] MEDS: PERCOCET 5MG/325MG TAB PO PRN ×4 (12:33→21:21)
[2021-09-07 18:04] VITALS: BP 119/80
[2021-09-08] MEDS: PERCOCET 5MG/325MG TAB PO PRN ×5 (01:32→13:07)
[2021-09-08 06:00] VITALS: BP 108/60
[2021-09-08] MEDS ORDERED: ACET-683 PO (07:15)
[2021-09-08] MEDS ORDERED: COLA100C5 PO (07:15)
[2021-09-08] MEDS: PRENATAL VITAMINS CHEWABLE TABLET PO SCH (09:00)
== END 2021-09-08 14:25 | disposition home or self-care (01) | DRG 805 ==
LOC: M LDO 06:40 → M LDI 06:44 → M OBS 11:41
PROVIDERS: ADMIT Obstetrics & Gynecology; ATTEND Obstetrics & Gynecology
PROC: 10E0XZZ Delivery of Products of Conception, External Approach (ICD-10-PCS; principal; 2021-09-07)
PROC: 10907ZC Drainage of Amniotic Fluid, Therapeutic from Products of Conception, Via Natural or Artificial Opening (ICD-10-PCS; 2021-09-07)
DX: O66.0 Obstructed labor due to shoulder dystocia (principal); Z37.0 Single live birth; U07.1 COVID-19; O98.52 Other viral diseases complicating childbirth; Z3A.39 39 weeks gestation of pregnancy; O36.0990 Maternal care for other rhesus isoimmunization, unspecified trimester, not applicable or unspecified; Z88.0 Allergy status to penicillin; Z88.6 Allergy status to analgesic agent

== ENCOUNTER 2021-11-14 18:46 | Emergency (ER) | payer OTHER ==
[~2021-11-14] VITALS: Ht 162.6 cm; Wt 72.7 kg
[~2021-11-14 18:46] MED LIST changes: +ACET-683 PO; +COLA100C5 PO
[2021-11-14 21:26] LABS: RSV AMPLIFICATION NEGATIVE (NEGATIVE)
[2021-11-14] MEDS ORDERED: NS 1,000 ML IV ONE (21:35)
[2021-11-14] MEDS ORDERED: ONDANSETRON 4MG 2ML VIAL IV ONE (21:35)
[2021-11-14] MEDS ORDERED: MORPHINE 4 MG/ML 1ML VIAL/SYRINGE IV ONE (21:35)
[2021-11-14 21:51] LABS: BASO # 0.1 10^3/uL (0.0-0.2); BASO % 0.7 % (0.0-1.0); EOS # 0.2 10^3/uL (0.0-0.5); EOS % 2.6 % (0.0-3.0); HEMATOCRIT 42.4 % (36.0-47.0); HEMOGLOBIN 13.8 g/dl (12.0-15.5); LYMPH # 2.3 10^3/uL (1.5-5.0); LYMPH % 32.5 % (24.0-44.0); MEAN CORPUSCULAR HEMOGLOBIN 29.9 pg (27.0-33.0); MEAN CORPUSCULAR HGB CONC 32.5 g/dl (32.0-36.5); MONO # 0.9 10^3/uL (0.0-0.8); NEUTROPHILS # 3.7 10^3/uL (1.5-8.5); NEUTROPHILS % 51.9 % (36.0-66.0); PLATELET COUNT, AUTOMATED 329 10^3/uL (150-450); RED BLOOD COUNT 4.61 10^6/uL (4.00-5.40); WHITE BLOOD COUNT 7.2 10^3/uL (4.0-10.0)
[2021-11-14 22:09] LABS: ERYTHROCYTE SEDIMENTATION RATE 5 mm/hr (0-20)
[2021-11-14 22:11] LABS: MONO REFLEX EBV COMP NEGATIVE (NEGATIVE)
[2021-11-14 22:17] LABS: ALBUMIN 3.6 GM/DL (3.2-5.2); BILIRUBIN,DIRECT 0.1 MG/DL (0.0-0.2); BILIRUBIN,TOTAL 0.4 MG/DL (0.2-1.0); C REACTIVE PROTEIN QUANTITATIV 1.73 MG/DL (0.00-0.30); TOTAL PROTEIN 7.3 GM/DL (6.4-8.2)
[2021-11-14] MEDS ORDERED: ISOVUE-370 76% 100ML VIAL As Ordered ONE (22:18)
[2021-11-14] MEDS ORDERED: diazePAM 10MG/2ML SYRINGE (J3360 PER 5MG) IV ONE (23:05)
[2021-11-15] MEDS ORDERED: MEDR4PAK PO (00:24)
[2021-11-15] MEDS ORDERED: METH-1165 PO (00:24)
[2021-11-15] MEDS ORDERED: diazePAM 5MG TABLET PO ONE (00:25)
[2021-11-15] MEDS ORDERED: predniSONE 20 MG TAB PO ONE (00:25)
[2021-11-15 00:33] VITALS: BP 136/80
[2021-11-15 12:53] LABS: GC DNA AMPLIFICATION NEGATIVE (NEGATIVE)
[2021-11-16 16:08] LABS: EBV AB TO NUCLEAR ANTIGEN 43.7 U/mL (0.0-17.9); EBV VIRAL CAPSID AG IgM <36.0 U/mL (0.0-35.9)
== END 2021-11-15 00:34 | disposition home or self-care (01) ==
LOC: M ED 18:46
DX: G89.18 Other acute postprocedural pain (principal); J03.90 Acute tonsillitis, unspecified; R10.2 Pelvic and perineal pain; R10.9 Unspecified abdominal pain; R07.0 Pain in throat; M54.50 Low back pain, unspecified; Z87.11 Personal history of peptic ulcer disease; M51.27 Other intervertebral disc displacement, lumbosacral region; M51.26 Other intervertebral disc displacement, lumbar region; Z79.899 Other long term (current) drug therapy; Z88.6 Allergy status to analgesic agent; Z88.0 Allergy status to penicillin
CPT/HCPCS: 72131; 74177; 80047; 80076; 81001; 83605; 83690; 84702; 85025; 85652; 86140; 86308; 86664; 86665; 87086; 87631; 87661; 87810; 87850; 87880; 93041; 94760; 96361; 96374; 96375; 99284; J2270; J2405; J3360; J7512; Q9967

== ENCOUNTER → 2021-12-31 | Outpatient (CLI) | payer OTHER ==
[~2021-12-31] MED LIST changes: +MEDR4PAK PO; +METH-1165 PO
== END ==
LOC: M RAD 12-21 07:52
PROVIDERS: ATTEND Family Medicine
DX: M51.26 Other intervertebral disc displacement, lumbar region (principal); M47.816 Spondylosis without myelopathy or radiculopathy, lumbar region